=== PATIENT | female | born 1990 | race Caucasian/White ===

== ENCOUNTER 2017-02-25 14:08 | Emergency (ER) | payer MEDICAID ==
--- NOTE | 2017-02-25 15:24 | ER Document Report ---
ED Medical Screen (RME) - General Chief Complaint: Vaginal Bleeding Stated Complaint: VAGINAL BLEEDING Time Seen by Provider: 02/25/17 15:23 Notes: Patient states she has had 2 weeks of vaginal bleeding with epigastric pain and vomiting for 3 days. TRAVEL OUTSIDE OF THE [place] IN LAST 30 DAYS: No - Related Data Allergies/Adverse Reactions: drospirenone [From FLORA 28] Allergy (Severe, Verified 06/15/15 13:06) rash ethinyl estradiol [From FLORA 28] Allergy (Severe, Verified 06/15/15 13:06) rash nitrofurantoin [From Macrobid] Allergy (Severe, Verified 06/15/15 13:06) Generalized rash nitrofurantoin macrocrystalline [From Macrobid] Allergy (Severe, Verified 13:06) Generalized rash penicillin V potassium [From Pen-Vee K] Allergy (Severe, Verified 02/25/17 14:57 ) Anaphylaxis Penicillins Allergy (Severe, Verified 02/25/17 14:57) Anaphylaxis Sulfa (Sulfonamide Antibiotics) Allergy (Severe, Verified 06/15/15 13:06) Hives amoxicillin Allergy (Verified 02/25/17 14:57) Anaphylaxis erythromycin base Allergy (Verified 02/25/17 14:57) Anaphylaxis Past Medical History - General Last Menstrual Period: 2 years ago when nexpenon implanted - Social History Chew tobacco use (# tins/day): No Frequency of alcohol use: None Drug Abuse: None Neurological Medical History: Reports: Hx Migraine Endocrine Medical History: Denies: Hx Diabetes Mellitus Type 2 Renal/ Medical History: Denies: Hx Peritoneal Dialysis Psychiatric Medical History: Reports: Hx Anxiety, Hx Bipolar Disorder, Hx Depression - anxiety Denies: Hx Post Traumatic Stress Disorder, Hx Schizophrenia Past Surgical History: Reports: Hx Adenoidectomy, Hx Section, Hx Myringotomy, Hx Tonsillectomy - and adenoids when 4 yrs old - Immunizations Immunizations up to date: Yes Hx Diphtheria, Pertussis, Tetanus Vaccination: Yes Physical Exam - Vital signs Vitals: Temp Pulse Resp BP Pulse Ox 98.3 F 85 18 144/75 H 97 02/25/17 14:17 02/25/17 14:17 02/25/17 14:17 02/25/17 14:17 02/25/17 14:17 Course - Vital Signs Vital signs: Temp Pulse Resp BP Pulse Ox 98.3 F 85 18 144/75 H 97 02/25/17 14:17 02/25/17 14:17 02/25/17 14:17 02/25/17 14:17 02/25/17 14:17
--- NOTE | 2017-02-25 15:47 | ER Document Report ---
ED GI/ - General Chief Complaint: Vaginal Bleeding Stated Complaint: VAGINAL BLEEDING Time Seen by Provider: 02/25/17 15:23 Mode of Arrival: Ambulatory Information source: Patient TRAVEL OUTSIDE OF THE [place] IN LAST 30 DAYS: No - HPI Patient complains to provider of: Vaginal bleeding Onset: Other - 2 weeks Timing/Duration: Waxing and waning Quality of pain: Achy, Cramping Severity at maximum: Mild Severity in ED: Mild Location: Pelvis Vaginal bleeding (Compared to normal period): Heavier Menstrual period history: Abnormal Associated symptoms: None Exacerbated by: Denies Relieved by: Denies Similar symptoms previously: No Recently seen / treated by doctor: No Notes: 02/25/17 17:04 Patient is a 26-year-old female presenting to the emergency room complaining of vaginal bleeding 2 weeks duration, her last menstrual period was approximately 2 years ago prior to having a Nexplanon placed, she is reporting some pelvic cramping, denies any fever, no dysuria, no vaginal discharge other than the bleeding, the bleeding is heavy at times but has stopped at this point, she also is complaining of a frontal headache - Related Data Allergies/Adverse Reactions: drospirenone [From FLORA 28] Allergy (Severe, Verified 06/15/15 13:06) rash ethinyl estradiol [From FLORA 28] Allergy (Severe, Verified 06/15/15 13:06) rash nitrofurantoin [From Macrobid] Allergy (Severe, Verified 06/15/15 13:06) Generalized rash nitrofurantoin macrocrystalline [From Macrobid] Allergy (Severe, Verified 13:06) Generalized rash penicillin V potassium [From Pen-Vee K] Allergy (Severe, Verified 02/25/17 14:57 ) Anaphylaxis Penicillins Allergy (Severe, Verified 02/25/17 14:57) Anaphylaxis Sulfa (Sulfonamide Antibiotics) Allergy (Severe, Verified 06/15/15 13:06) Hives amoxicillin Allergy (Verified 02/25/17 14:57) Anaphylaxis erythromycin base Allergy (Verified 02/25/17 14:57) Anaphylaxis Past Medical History - General Information source: Patient Last Menstrual Period: 2 years ago when nexpenon implanted - Social History Smoking Status: Never Smoker Chew tobacco use (# tins/day): No Frequency of alcohol use: None Drug Abuse: None Family History: None Patient has suicidal ideation: No Patient has homicidal ideation: No Neurological Medical History: Reports: Hx Migraine Endocrine Medical History: Denies: Hx Diabetes Mellitus Type 2 Renal/ Medical History: Denies: Hx Peritoneal Dialysis Psychiatric Medical History: Reports: Hx Anxiety, Hx Bipolar Disorder, Hx Depression - anxiety Denies: Hx Post Traumatic Stress Disorder, Hx Schizophrenia Past Surgical History: Reports: Hx Adenoidectomy, Hx Section, Hx Myringotomy, Hx Tonsillectomy - and adenoids when 4 yrs old - Immunizations Immunizations up to date: Yes Hx Diphtheria, Pertussis, Tetanus Vaccination: Yes Hx Pneumococcal Vaccination: 04/08/14 Review of Systems - Review of Systems Constitutional: No symptoms reported EENT: No symptoms reported Cardiovascular: No symptoms reported Respiratory: No symptoms reported Gastrointestinal: No symptoms reported Genitourinary: No symptoms reported Female Genitourinary: Vaginal bleeding Musculoskeletal: No symptoms reported Skin: No symptoms reported Hematologic/Lymphatic: No symptoms reported Neurological/Psychological: No symptoms reported -: Yes All other systems reviewed and negative Physical Exam - Vital signs Vitals: Temp Pulse Resp BP Pulse Ox 98.3 F 85 18 144/75 H 97 02/25/17 14:17 02/25/17 14:17 02/25/17 14:17 02/25/17 14:17 02/25/17 14:17 Interpretation: Normal - General General appearance: Appears well, Alert - HEENT Head: Normocephalic, Atraumatic Eyes: Normal Pupils: PERRL - Respiratory Respiratory status: No respiratory distress Chest status: Nontender Breath sounds: Normal Chest palpation: Normal - Cardiovascular Rhythm: Regular Heart sounds: Normal auscultation Murmur: No - Abdominal Inspection: Normal Distension: No distension Bowel sounds: Normal Tenderness: Nontender Organomegaly: No organomegaly - Back Back: Normal, Nontender - Extremities General upper extremity: Normal inspection, Nontender, Normal color, Normal ROM , Normal temperature General lower extremity: Normal inspection, Nontender, Normal color, Normal ROM , Normal temperature, Normal weight bearing. No: Lashanda's sign - Neurological Neuro grossly intact: Yes Cognition: Normal Orientation: AAOx4 [place] Coma Scale Eye Opening: Spontaneous [place] Coma Scale Verbal: Oriented [place] Coma Scale Motor: Obeys Commands [place] Coma Scale Total: 15 Speech: Normal Motor strength normal: LUE, RUE, LLE, RLE Sensory: Normal - Psychological Associated symptoms: Normal affect, Normal mood - Skin Skin Temperature: Warm Skin Moisture: Dry Skin Color: Normal Course - Re-evaluation Re-evalutation: 02/25/17 17:05 Lab findings unremarkable and were discussed with patient at bedside, she was advised to follow-up with [facility], take Tylenol or Motrin as needed for pain, was given medication in the department for cramping and headache, patient advised to return if symptoms worsen, patient acknowledges understanding and agreement with this plan - Vital Signs Vital signs: Temp Pulse Resp BP Pulse Ox 98.3 F 85 18 144/75 H 97 02/25/17 14:17 02/25/17 14:17 02/25/17 14:17 02/25/17 14:17 02/25/17 14:17 - Laboratory Result Diagrams: 02/25/17 15:31 02/25/17 15:31 Laboratory results interpreted by me: 02/25/17 02/25/17 15:31 15:54 Sodium 145.9 H Urine Blood LARGE H Discharge - Discharge Clinical Impression: Vaginal bleeding Condition: Stable Disposition: HOME, SELF-CARE Instructions: Vaginal Bleeding ([facility]) Additional Instructions: Follow-up with your [facility] in 2-3 days. Return to the emergency room immediately if symptoms worsen or any additional concerns.
[2017-02-25 15:54] LABS: ABSOLUTE BASOPHILS # (AUTO) 0.1 10^3/uL (0.0-0.2); ABSOLUTE EOSINOPHILS # (AUTO) 0.2 10^3/uL (0.0-0.6); ABSOLUTE LYMPHOCYTES (AUTO) 3.5 10^3/uL (0.5-4.7); ABSOLUTE MONOCYTES (AUTO) 0.7 10^3/uL (0.1-1.4); ABSOLUTE NEUT (AUTO) 5.8 10^3/uL (1.7-8.2); BASOPHILS % (AUTO) 1.2 % (0-2); EOSINOPHILS % (AUTO) 1.8 % (0-6); HEMATOCRIT 43.3 % (36.0-47.0); HEMOGLOBIN 15.1 g/dL (12.0-15.5); LYMPHOCYTES % (AUTO) 34.1 % (13-45); MEAN CORPUSCULAR HEMOGLOBIN 31.8 pg (27.0-33.4); MEAN CORPUSCULAR HGB CONC 34.9 g/dL (32.0-36.0); MEAN CORPUSCULAR VOLUME 91 fl (80-97); MONOCYTES % (AUTO) 6.7 % (3-13); RED BLOOD COUNT 4.75 10^6/uL (3.72-5.28); RED CELL DISTRIBUTION WIDTH 13.1 % (11.5-14.0); SEGMENTED NEUTROPHILS % (AUTO) 56.2 % (42-78); WHITE BLOOD COUNT 10.3 10^3/uL (4.0-10.5)
[2017-02-25 16:11] LABS: BLOOD UREA NITROGEN 13 mg/dL (7-20); CALCIUM 9.4 mg/dL (8.4-10.2); CARBON DIOXIDE 27 mmol/L (22-30); CHLORIDE 104 mmol/L (98-107); CREATININE RESULT 0.82 mg/dL (0.52-1.25); GLUCOSE 92 mg/dL (75-110); POTASSIUM 4.1 mmol/L (3.6-5.0); SODIUM 145.9 mmol/L (137-145)
[2017-02-25 16:12] LABS: ALANINE AMINOTRANSFERASE 42 U/L (9-52); ALBUMIN 4.4 g/dL (3.5-5.0); ALKALINE PHOSPHATASE 65 U/L (38-126); ANION GAP 15 (5-19); ASPARTATE AMINO TRANSFERASE 15 U/L (14-36); BILIRUBIN,DIRECT 0.3 mg/dL (0.0-0.4); BILIRUBIN,TOTAL 0.3 mg/dL (0.2-1.3); LIPASE 177.7 U/L (23-300); TOTAL PROTEIN 7.7 g/dL (6.3-8.2)
[2017-02-25 16:24] LABS: APPEARANCE,URINE SLIGHTLY-CLOUDY; BILIRUBIN,URINE NEGATIVE (NEGATIVE); GLUCOSE, URINE NEGATIVE (NEGATIVE); KETONES,URINE NEGATIVE (NEGATIVE); LEUKOCYTE ESTERASE,URINE NEGATIVE (NEGATIVE); NITRITE,URINE NEGATIVE (NEGATIVE); PROTEIN,URINE NEGATIVE (NEGATIVE); URINE SPECIFIC GRAVITY 1.026; UROBILINOGEN,URINE NEGATIVE mg/dL (<2.0)
[2017-02-25] MEDS ORDERED: HYDROCODONE/ACETAMINOPHEN 5-325 MG TABLET PO ONE (17:03)
[2017-02-25] MEDS ORDERED: METOCLOPRAMIDE HCL ORAL SOLN 10 MG/10 ML UDCUP PO ONE (17:03)
[2017-02-25 17:52] VITALS: BP 123/78
== END 2017-02-25 17:52 | disposition home or self-care (01) ==
LOC: ER 14:08
DX: N93.9 Abnormal uterine and vaginal bleeding, unspecified (principal)
CPT/HCPCS: 99284; 36415; 83690; 85025; 81025; 80053; 81001; J3490

== ENCOUNTER 2017-06-06 12:26 | Emergency (ER) | payer MEDICAID ==
--- NOTE | 2017-06-06 14:07 | ER Document Report ---
ED General - General Chief Complaint: Headache Stated Complaint: HEADACHE, RASH Time Seen by Provider: 06/06/17 14:06 Mode of Arrival: Ambulatory Information source: Patient Notes: Patient is a 26 year old female who presents with rash that itches for the past 2-3 weeks from her shoulders to her feet. Denies any change in detergents, soaps , lotions, makeup. She has tried topical and oral benadryl with no relief. She reports her also has similar rash at home. She bought new clothing detergent today to try. She also endorses bitemporal headache for the past 2 days. State this feels like her typical headache. She has tried tylenol/motrin with no relief. Denies fever, chills, changes in vision, dizziness, nausea, vomiting, diarrhea, difficulty breathing, unilateral weakness, numbness or tingling. TRAVEL OUTSIDE OF THE [place] IN LAST 30 DAYS: No - Related Data Allergies/Adverse Reactions: drospirenone [From FLORA 28] Allergy (Severe, Verified 06/06/17 12:29) rash ethinyl estradiol [From FLORA 28] Allergy (Severe, Verified 06/06/17 12:29) rash nitrofurantoin [From Macrobid] Allergy (Severe, Verified 06/06/17 12:29) Generalized rash nitrofurantoin macrocrystalline [From Macrobid] Allergy (Severe, Verified 12:29) Generalized rash penicillin V potassium [From Pen-Vee K] Allergy (Severe, Verified 06/06/17 12:29 ) Anaphylaxis Penicillins Allergy (Severe, Verified 06/06/17 12:29) Anaphylaxis Sulfa (Sulfonamide Antibiotics) Allergy (Severe, Verified 06/06/17 12:29) Hives amoxicillin Allergy (Verified 06/06/17 12:29) Anaphylaxis erythromycin base Allergy (Verified 06/06/17 12:29) Anaphylaxis Past Medical History - General Information source: Patient - Social History Smoking Status: Never Smoker Chew tobacco use (# tins/day): No Frequency of alcohol use: None Drug Abuse: None Family History: None Patient has suicidal ideation: No Patient has homicidal ideation: No Neurological Medical History: Reports: Hx Migraine Endocrine Medical History: Denies: Hx Diabetes Mellitus Type 2 Renal/ Medical History: Denies: Hx Peritoneal Dialysis Psychiatric Medical History: Reports: Hx Anxiety, Hx Bipolar Disorder, Hx Depression - anxiety Denies: Hx Post Traumatic Stress Disorder, Hx Schizophrenia Past Surgical History: Reports: Hx Adenoidectomy, Hx Section, Hx Myringotomy, Hx Tonsillectomy - and adenoids when 4 yrs old - Immunizations Immunizations up to date: Yes Hx Diphtheria, Pertussis, Tetanus Vaccination: Yes Hx Pneumococcal Vaccination: 04/08/14 Review of Systems - Review of Systems Constitutional: See HPI EENT: No symptoms reported Cardiovascular: No symptoms reported Respiratory: No symptoms reported Gastrointestinal: No symptoms reported Genitourinary: No symptoms reported Female Genitourinary: No symptoms reported Musculoskeletal: No symptoms reported Skin: See HPI Hematologic/Lymphatic: No symptoms reported Neurological/Psychological: See HPI Physical Exam - Vital signs Vitals: Temp Pulse Resp BP Pulse Ox 98.6 F 90 16 128/75 H 97 06/06/17 12:30 06/06/17 12:30 06/06/17 12:30 06/06/17 12:30 06/06/17 12:30 - Notes Notes: PHYSICAL EXAM: CONSTITUTIONAL: Alert and oriented, well-appearing and in no acute distress. HENT: Normocephalic, atraumatic. No temporal artery tenderness, warmth or erythema. Oropharynx clear without erythema, tonsilar exudate or malocclusion. Trachea midline. Uvula midline. Moist mucous membranes. EYES: Pupils equal round and reactive to light, EOM intact. Sclera anicteric, conjunctiva are normal. No entrapment. NECK: supple without lymphadenopathy. No midline tenderness or paraspinous muscle spasms. No step-offs or deformities. ROM intact. HEART: Regular rate and rhythm without murmurs. LUNGS: CTAB and equal. No wheezes, rales or rhonchi. GI: Normactive bowel sounds. Nontender, non-distended. No organomegaly. no CVAT. EXTREMITIES: no bony tenderness, erythema, edema, ecchymosis or deformity. Normal range of motion, no pitting edema. No cyanosis. Cap Refill <3 seconds. NEURO: Cranial nerves grossly intact. Normal sensory/motor exams. No slurred speech, facial droop. PSYCH: Normal mood, normal affect. SKIN: Warm and dry. Normal turgor. Generalized scattered maculopapular rash to abdomen, back, upper extremities, lower extremities with overlying excoriations. Course - Re-evaluation Re-evalutation: 06/06/17 14:06 Patient seen and examined. Well-appearing, well-hydrated, sitting upright in exam bed, speaking in full sentences without difficulty. No neurological deficits on exam. This is not the worst headache she ever had her entire life. She denies any visual symptoms, neurological symptoms, vomiting or diarrhea. Do not feel imaging is warranted at this time. We will give IM Toradol and reassess. Low suspicion for temporal arteritis, SAH, CVA/TIA or other emergent condition at this time. Rash is consistent with contact dermatitis with overlying excoriations, no evidence of anaphylaxis. 06/06/17 14:58 Reassessed patient - she reports headache pain has resolved and she is ready to go home. Will prescribe steroids and hydroxyzine for itching, discussed hygiene at home. At this time, will discharge with return precautions and follow-up recommendations. Verbal discharge instructions given at the bedside and opportunity for questions given. Medication warnings reviewed. Patient is in agreement with this plan and has verbalized understanding of return precautions and the need for primary care follow-up in the next 24-72 hours. - Vital Signs Vital signs: Temp Pulse Resp BP Pulse Ox 98.6 F 90 16 128/75 H 97 06/06/17 12:30 06/06/17 12:30 06/06/17 12:30 06/06/17 12:30 06/06/17 12:30 Discharge - Discharge Clinical Impression: Contact dermatitis Qualifiers: Contact dermatitis type: irritant Contact dermatitis trigger: other trigger Qualified Code(s): L24.89 - Irritant contact dermatitis due to other agents; L24.8 - Irritant contact dermatitis due to other agents Headache Qualifiers: Headache type: tension-type Headache chronicity pattern: acute headache Intractability: not intractable Qualified Code(s): G44.209 - Tension-type headache, unspecified, not intractable Condition: Stable Disposition: HOME, SELF-CARE Instructions: Contact Dermatitis ([facility]) Additional Instructions: HEADACHE: The physician does not feel that the headache you are experiencing has a serious underlying cause. Most headaches are due to emotional stress, with resultant muscle tension (tension headache). Occasionally, headaches are secondary to changes in the blood vessels of the scalp (vascular headache and migraine headache). Sometimes, a headache is the first symptom of another developing illness, such as a viral infection. You have no evidence of stroke, bleeding, meningitis, or other serious cause of your headache. The treatment of headaches varies with the severity and cause of the pain. Not all headaches need pain shots. In fact, there is evidence that using narcotics for headaches may make them worse in the long run. The physician will determine the therapy that's in your best interest. If you develop a fever, if the headache is different from any you've previously experienced, or if the headache progressively worsens, then call your physician at once or go to the emergency room. TORADOL INJECTION: You have been given an injection of ketorolac tromethamine (Toradol). This is an excellent, safe drug for pain control. It also has potent antiinflammatory action. You should have significant pain relief within about one hour. Toradol is not addicting and is non-sedating. It does not interfere with driving or work. Call or return if you develop itching, hives, shortness of breath, or rash. FOLLOW-UP CARE: If you have been referred to a physician for follow-up care, call the physician s office for an appointment as you were instructed or within the next two days. If you experience worsening or a significant change in your symptoms, notify the physician immediately or return to the Emergency Department at any time for re-evaluation. Prescriptions: Hydralazine HCl 25 mg PO BID #12 tablet Prednisone [Deltasone 20 mg Tablet] 3 tab PO DAILY 5 Days tablet Forms: Elevated Blood Pressure
[2017-06-06] MEDS ORDERED: KETOROLAC TROMETHAMINE 60 MG/2 ML SDV IM ONE (14:12)
[2017-06-06 15:21] VITALS: BP 131/81
== END 2017-06-06 15:21 | disposition home or self-care (01) ==
LOC: ER 12:26
DX: L24.9 Irritant contact dermatitis, unspecified cause (principal); G44.209 Tension-type headache, unspecified, not intractable; E11.9 Type 2 diabetes mellitus without complications; Z88.8 Allergy status to other drugs, medicaments and biological substances; Z88.1 Allergy status to other antibiotic agents; Z88.0 Allergy status to penicillin; Z88.2 Allergy status to sulfonamides
CPT/HCPCS: 99283; 96372; J1885

== ENCOUNTER 2018-02-10 12:00 | Emergency (ER) | payer MEDICAID ==
[2018-02-10] MEDS ORDERED: PROMETHAZINE HCL INJ 25 MG/1 ML VIAL IV ONE (12:55)
--- NOTE | 2018-02-10 12:57 | ER Document Report ---
ED Medical Screen (RME) - General Chief Complaint: Vomiting Stated Complaint: VOMITING, HEADACHE Time Seen by Provider: 02/10/18 12:51 Mode of Arrival: Ambulatory Information source: Patient Notes: 27-year-old female presents emergency department complaints of epigastric and suprapubic abdominal pain for the last 2 days. She describes the pain as a sharp and stabbing sensation. She denies any radiation of the pain. She denies any alleviating or exacerbating factors. She is having some associated nausea and vomiting. She denies any vaginal bleeding, vaginal discharge, dysuria, hematuria, increased urgency, increased frequency. Patient states that she has a nexplanon in her arm that was supposed to be removed last month. I have greeted and performed a rapid initial assessment of this patient. A comprehensive ED assessment and evaluation of the patient, analysis of test results and completion of the medical decision making process will be conducted by additional ED providers. PHYSICAL EXAMINATION: GENERAL: Well-appearing, well-nourished and in no acute distress. HEAD: Atraumatic, normocephalic. EYES: Pupils equal round extraocular movements intact, conjunctiva are normal. ENT: Nares patent NECK: Normal range of motion LUNGS: No respiratory distress Musculoskeletal: Normal range of motion NEUROLOGICAL: Normal speech, normal gait. PSYCH: Normal mood, normal affect. SKIN: Warm, Dry, normal turgor, no rashes or lesions noted. TRAVEL OUTSIDE OF THE [place] IN LAST 30 DAYS: No - Related Data Allergies/Adverse Reactions: drospirenone [From FLORA 28] Allergy (Severe, Verified 02/10/18 12:01) rash ethinyl estradiol [From FLORA 28] Allergy (Severe, Verified 02/10/18 12:01) rash nitrofurantoin [From Macrobid] Allergy (Severe, Verified 02/10/18 12:01) Generalized rash nitrofurantoin macrocrystalline [From Macrobid] Allergy (Severe, Verified 12:01) Generalized rash penicillin V potassium [From Pen-Vee K] Allergy (Severe, Verified 02/10/18 12:01 ) Anaphylaxis Penicillins Allergy (Severe, Verified 02/10/18 12:01) Anaphylaxis Sulfa (Sulfonamide Antibiotics) Allergy (Severe, Verified 02/10/18 12:01) Hives amoxicillin Allergy (Verified 02/10/18 12:01) Anaphylaxis erythromycin base Allergy (Verified 02/10/18 12:01) Anaphylaxis Past Medical History Neurological Medical History: Reports: Hx Migraine Endocrine Medical History: Denies: Hx Diabetes Mellitus Type 2 Renal/ Medical History: Denies: Hx Peritoneal Dialysis Psychiatric Medical History: Reports: Hx Anxiety, Hx Bipolar Disorder, Hx Depression - anxiety Denies: Hx Post Traumatic Stress Disorder, Hx Schizophrenia Past Surgical History: Reports: Hx Adenoidectomy, Hx Section, Hx Myringotomy, Hx Tonsillectomy - and adenoids when 4 yrs old - Immunizations Immunizations up to date: Yes Hx Diphtheria, Pertussis, Tetanus Vaccination: Yes Physical Exam - Vital signs Vitals: Temp Pulse Resp BP Pulse Ox 98.2 F 75 16 125/72 97 02/10/18 12:03 02/10/18 12:03 02/10/18 12:03 02/10/18 12:03 02/10/18 12:03 Course - Vital Signs Vital signs: Temp Pulse Resp BP Pulse Ox 98.2 F 75 16 125/72 97 02/10/18 12:03 02/10/18 12:03 02/10/18 12:03 02/10/18 12:03 02/10/18 12:03
[2018-02-10 13:56] LABS: APPEARANCE,URINE SLIGHTLY-CLOUDY; BILIRUBIN,URINE NEGATIVE (NEGATIVE); COLOR,URINE YELLOW; GLUCOSE, URINE NEGATIVE (NEGATIVE); KETONES,URINE NEGATIVE (NEGATIVE); LEUKOCYTE ESTERASE,URINE LARGE (NEGATIVE); NITRITE,URINE POSITIVE (NEGATIVE); PROTEIN,URINE NEGATIVE (NEGATIVE); URINE SPECIFIC GRAVITY 1.028; UROBILINOGEN,URINE NEGATIVE mg/dL (<2.0)
[2018-02-10 14:04] LABS: ABSOLUTE BASOPHILS # (AUTO) 0.1 10^3/uL (0.0-0.2); ABSOLUTE EOSINOPHILS # (AUTO) 0.2 10^3/uL (0.0-0.6); ABSOLUTE LYMPHOCYTES (AUTO) 2.4 10^3/uL (0.5-4.7); ABSOLUTE MONOCYTES (AUTO) 0.5 10^3/uL (0.1-1.4); ABSOLUTE NEUT (AUTO) 4.5 10^3/uL (1.7-8.2); BASOPHILS % (AUTO) 0.9 % (0-2); EOSINOPHILS % (AUTO) 2.8 % (0-6); HEMATOCRIT 40.1 % (36.0-47.0); HEMOGLOBIN 14.4 g/dL (12.0-15.5); LYMPHOCYTES % (AUTO) 30.7 % (13-45); MEAN CORPUSCULAR HEMOGLOBIN 33.7 pg (27.0-33.4); MEAN CORPUSCULAR HGB CONC 35.8 g/dL (32.0-36.0); MEAN CORPUSCULAR VOLUME 94 fl (80-97); MONOCYTES % (AUTO) 7.2 % (3-13); PLATELET COUNT 163 10^3/uL (150-450); RED BLOOD COUNT 4.26 10^6/uL (3.72-5.28); RED CELL DISTRIBUTION WIDTH 13.6 % (11.5-14.0); SEGMENTED NEUTROPHILS % (AUTO) 58.4 % (42-78); TOTAL CELLS COUNTED % (AUTO) 100 %; WHITE BLOOD COUNT 7.7 10^3/uL (4.0-10.5)
[2018-02-10 14:30] LABS: ALANINE AMINOTRANSFERASE 24 U/L (9-52); ALBUMIN 4.2 g/dL (3.5-5.0); ALKALINE PHOSPHATASE 63 U/L (38-126); ANION GAP 12 (5-19); ASPARTATE AMINO TRANSFERASE 21 U/L (14-36); BILIRUBIN,DIRECT 0.1 mg/dL (0.0-0.4); BILIRUBIN,TOTAL 0.3 mg/dL (0.2-1.3); BLOOD UREA NITROGEN 18 mg/dL (7-20); CALCIUM 9.5 mg/dL (8.4-10.2); CARBON DIOXIDE 27 mmol/L (22-30); CHLORIDE 105 mmol/L (98-107); GLUCOSE 89 mg/dL (75-110); LIPASE 66.6 U/L (23-300); POTASSIUM 4.6 mmol/L (3.6-5.0); SODIUM 144.2 mmol/L (137-145); TOTAL PROTEIN 7.9 g/dL (6.3-8.2)
[2018-02-10] MEDS ORDERED: KETOROLAC TROMETHAMINE INJ/PF 30 MG/1 ML SDV IV ONE (14:34)
[2018-02-10] MEDS ORDERED: CEFTRIAXONE INJ 1000 MG VIAL IV ONE (14:48)
--- NOTE | 2018-02-10 14:51 | ER Document Report ---
ED GI/ - General Chief Complaint: Vomiting Stated Complaint: VOMITING, HEADACHE Time Seen by Provider: 02/10/18 12:51 Mode of Arrival: Ambulatory Information source: Patient Notes: 27-year-old female presents to ED for complaint of headache nausea vomiting epigastric pain and suprapubic pain for the last 2 days. She describes the pain as sharp and stabbing. She states the headaches are her normal headaches. She states she usually does not vomit with the headaches but she is today. Patient is alert and oriented, pupils equal and react to light, respirations regular and unlabored, speaking in full sentences, and walk with a even steady gait. TRAVEL OUTSIDE OF THE [place] IN LAST 30 DAYS: No - HPI Patient complains to provider of: Vomiting - Nausea and vomiting, Other - Epigastric pain and suprapubic Onset: Other - 2 days Timing/Duration: Intermittent Quality of pain: Achy, Cramping Severity at maximum: Moderate Severity in ED: Moderate Pain Level: 3 Location: Epigastric, Suprapubic Vaginal bleeding (Compared to normal period): None Associated symptoms: Nausea, Vomiting Exacerbated by: Denies Relieved by: Denies Similar symptoms previously: Yes Recently seen / treated by doctor: No - Related Data Allergies/Adverse Reactions: drospirenone [From FLORA 28] Allergy (Severe, Verified 02/10/18 12:01) rash ethinyl estradiol [From FLORA 28] Allergy (Severe, Verified 02/10/18 12:01) rash nitrofurantoin [From Macrobid] Allergy (Severe, Verified 02/10/18 12:01) Generalized rash nitrofurantoin macrocrystalline [From Macrobid] Allergy (Severe, Verified 12:01) Generalized rash penicillin V potassium [From Pen-Vee K] Allergy (Severe, Verified 02/10/18 12:01 ) Anaphylaxis Penicillins Allergy (Severe, Verified 02/10/18 12:01) Anaphylaxis Sulfa (Sulfonamide Antibiotics) Allergy (Severe, Verified 02/10/18 12:01) Hives amoxicillin Allergy (Verified 02/10/18 12:01) Anaphylaxis erythromycin base Allergy (Verified 02/10/18 12:01) Anaphylaxis Past Medical History - General Information source: Patient - Social History Smoking Status: Never Smoker Cigarette use (# per day): No Chew tobacco use (# tins/day): No Smoking Education Provided: No Frequency of alcohol use: None Drug Abuse: None Lives with: Family Family History: None Patient has suicidal ideation: No Patient has homicidal ideation: No - Past Medical History Cardiac Medical History: Reports: None Pulmonary Medical History: Reports: None EENT Medical History: Reports: None Neurological Medical History: Reports: Hx Migraine Endocrine Medical History: Reports: None Renal/ Medical History: Reports: None Malignancy Medical History: Reports: None GI Medical History: Reports: None Musculoskeletal Medical History: Reports None Skin Medical History: Reports None Psychiatric Medical History: Reports: Hx Anxiety, Hx Bipolar Disorder, Hx Depression - anxiety, Hx Post Traumatic Stress Disorder Traumatic Medical History: Reports: None Infectious Medical History: Reports: None Past Surgical History: Reports: Hx Adenoidectomy, Hx Section, Hx Myringotomy, Hx Tonsillectomy - Immunizations Immunizations up to date: Yes Hx Diphtheria, Pertussis, Tetanus Vaccination: Yes Hx Pneumococcal Vaccination: 04/08/14 Review of Systems - Review of Systems Constitutional: No symptoms reported EENT: No symptoms reported Cardiovascular: No symptoms reported Respiratory: No symptoms reported Gastrointestinal: Abdominal pain, Nausea, Vomiting Genitourinary: No symptoms reported Female Genitourinary: No symptoms reported Musculoskeletal: No symptoms reported Skin: No symptoms reported Hematologic/Lymphatic: No symptoms reported Neurological/Psychological: No symptoms reported -: Yes All other systems reviewed and negative Physical Exam - Vital signs Vitals: Temp Pulse Resp BP Pulse Ox 98.2 F 75 16 125/72 97 02/10/18 12:03 02/10/18 12:03 02/10/18 12:03 02/10/18 12:03 02/10/18 12:03 Interpretation: Normal - General General appearance: Appears well, Alert - HEENT Head: Normocephalic, Atraumatic Eyes: Normal Pupils: PERRL Ears: Normal External canal: Normal Tympanic membrane: Normal Sinus: Normal Nasal: Normal Mouth/Lips: Normal Pharynx: Normal Neck: Normal - Respiratory Respiratory status: No respiratory distress Chest status: Nontender Breath sounds: Normal Chest palpation: Normal - Cardiovascular Rhythm: Regular Heart sounds: Normal auscultation Murmur: No - Abdominal Inspection: Normal Distension: No distension Bowel sounds: Normal Tenderness: Nontender Organomegaly: No organomegaly - Back Back: Normal, Nontender - Extremities General upper extremity: Normal inspection, Nontender, Normal color, Normal ROM , Normal temperature General lower extremity: Normal inspection, Nontender, Normal color, Normal ROM , Normal temperature, Normal weight bearing. 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 Patient states she was feeling much better patient was discharged home with prescription for ibuprofen and Compazine. Patient was discharged home with instructions to follow-up with her primary doctor. After performing a Medical Screening Examination, I estimate there is LOW risk for ACUTE GLAUCOMA, TEMPORAL ARTERITIS , MENINGITIS, INCRANIAL HEMORRHAGE, or ISCHEMIC STROKE thus I consider the discharge disposition reasonable. I have reevaluated this patient multiple times and no significant life threatening changes are noted. The patient and I have discussed the diagnosis and risks, and we agree with discharging home with close follow-up with the understanding that symptoms and presentations can change. We also discussed returning to the Emergency Department immediately if new or worsening symptoms occur. We have discussed the symptoms which are most concerning (e.g., changing or worsening symptoms, new numbness or weakness, vomiting, fever) that necessitate immediate return. - Vital Signs Vital signs: Temp Pulse Resp BP Pulse Ox 98.6 F 67 18 121/90 H 99 02/10/18 15:26 02/10/18 15:26 02/10/18 15:26 02/10/18 15:26 02/10/18 15:26 - Laboratory Result Diagrams: 02/10/18 13:32 02/10/18 13:32 Laboratory results interpreted by me: 02/10/18 02/10/18 13:32 13:32 MCH 33.7 H Urine Nitrite POSITIVE H Ur Leukocyte Esterase LARGE H Discharge - Discharge Clinical Impression: Headache Qualifiers: Headache type: unspecified Headache chronicity pattern: unspecified pattern Intractability: not intractable Qualified Code(s): R51 - Headache UTI (urinary tract infection) Qualifiers: Urinary tract infection type: site unspecified Hematuria presence: without hematuria Qualified Code(s): N39.0 - Urinary tract infection, site not specified Nausea & vomiting Qualifiers: Vomiting type: unspecified Vomiting Intractability: non-intractable Qualified Code(s): R11.2 - Nausea with vomiting, unspecified Condition: Stable Disposition: HOME, SELF-CARE Instructions: Family Physicians / Practices Additional Instructions: HEADACHE: The physician does not feel that the headache you are experiencing has a serious underlying cause. Most headaches are due to emotional stress, with resultant muscle tension (tension headache). Occasionally, headaches are secondary to changes in the blood vessels of the scalp (vascular headache and migraine headache). Sometimes, a headache is the first symptom of another developing illness, such as a viral infection. You have no evidence of stroke, bleeding, meningitis, or other serious cause of your headache. The treatment of headaches varies with the severity and cause of the pain. Not all headaches need pain shots. In fact, there is evidence that using narcotics for headaches may make them worse in the long run. The physician will determine the therapy that's in your best interest. If you develop a fever, if the headache is different from any you've previously experienced, or if the headache progressively worsens, then call your physician at once or go to the emergency room. VOMITING: Vomiting (or nausea without vomiting) can be caused by many other different problems. It can mean that something's wrong with the stomach, such as ulcers or inflammation or the intestinal tract, such as appendicitis. But it can also be a symptom of a problem that has nothing to do with the stomach or intestines. Vomiting is common with severe headaches, earaches, tonsillitis, and kidney infections, etc. We see it with pneumonia or heart attacks. Drugs can cause nausea and vomiting. Many abdominal problems cause vomiting; for example, gallstones, kidney stones, pancreatitis, and intestinal obstruction ( blocked bowels). In most cases, curing the vomiting depends on fixing the problem that caused it. For temporary relief, we may use an anti-nausea medicine. For home use, we can prescribe suppositories, chewable pills, pills that dissolve in the mouth, or liquid anti-nausea drugs. If the vomiting seems to be caused by a problem in the stomach, acid-suppressing drugs may be prescribed as well. It's important to avoid dehydration. Sip small amounts of clear liquids ( soft drinks, tea, broth, etc) . Try to take fluids frequently even if you are vomiting to prevent dehydration. Take increasing amounts of fluid and when liquids are being consumed successfully, advance to small amounts of bland food (toast, soups, mashed potatoes, etc.) until you are able to resume a regular diet. Avoid aspirin, tobacco, and alcohol. If the vomiting worsens, if the problem that's making you vomit worsens, or if there's evidence of bleeding in the stomach (such as black, tarry stool, or bloody or black vomit), you should return immediately. Also, return if abdominal pain worsens or becomes localized to one area or you develop high fever. Call your doctor if you aren't improved in 24 hours. USE OF DIPHENHYDRAMINE: Diphenhydramine (Benadryl) is an antihistamine and has been recommended to help treat your headache and to prevent side effects of other medications used to treat headaches. The medication can be repeated four times daily. Age Elixir (12.5 mg/tsp) 25 mg pill adult 1-2 tabs Antihistamines may cause drowsiness, especially with the first dose. Do not operate machinery or drive while under the effects of the medication. Do not combine the medication with alcohol, or with any other medication without talking to your doctor. COMPAZINE FOR HEADACHE: You have received therapy for headaches, using intravenous Compazine. This treatment is dramatically successful in relieving the headache in about 50 percent of cases. When it works, it provides a rapid method of eliminating the headache without resorting to narcotics (and the problems associated with them). Most patients still feel fully alert after the Compazine, but others may be slightly drowsy. It's best not to drive or work with machinery for six to eight hours. Do not take alcohol or other medication unless you discuss it with the doctor. If you develop tightness and spasms in your muscles, especially the neck and tongue, you should return. This is a side effect which can be treated. TORADOL INJECTION: You have been given an injection of ketorolac tromethamine (Toradol). This is an excellent, safe drug for pain control. It also has potent antiinflammatory action. You should have significant pain relief within about one hour. Toradol is not addicting and is non-sedating. It does not interfere with driving or work. Call or return if you develop itching, hives, shortness of breath, or rash. FOLLOW-UP CARE: If you have been referred to a physician for follow-up care, call the physician s office for an appointment as you were instructed or within the next two days. If you experience worsening or a significant change in your symptoms, notify the physician immediately or return to the Emergency Department at any time for re-evaluation. Prescriptions: Ibuprofen 800 mg PO Q6HP PRN #20 tablet PRN Reason: Prochlorperazine Maleate [Compazine 10 mg Tablet] 10 mg PO Q6HP PRN #10 tablet PRN Reason: Cephalexin Monohydrate [Keflex 500 mg Capsule] 500 mg PO QID #20 capsule Forms: Elevated Blood Pressure
[2018-02-10 15:28] VITALS: BP 121/90
== END 2018-02-10 15:28 | disposition home or self-care (01) ==
LOC: ER 12:00
DX: N39.0 Urinary tract infection, site not specified (principal); R51 Headache; R11.2 Nausea with vomiting, unspecified; R10.13 Epigastric pain
CPT/HCPCS: 99284; 96375; 96365; 36415; 83690; 85025; 81025; 80053; 81001; J1885; J2550; J0696

== ENCOUNTER → 2018-03-05 | Outpatient (CLI) | payer MEDICAID ==
--- NOTE | 2018-03-05 11:43 | RADIOLOGY REPORT (SQ) ---
EXAM DESCRIPTION: VENOUS BILATERAL LOWER COMPLETED DATE/TIME: 03/05/2018 9:43 am REASON FOR STUDY: BLE SWELLING R22.43 LOCALIZED SWELLING, MASS AND LUMP, LOWER LIMB, BILATE COMPARISON: None. TECHNIQUE: Dynamic and static ahmadi scale and color images acquired of both lower extremity venous sy stems. Selected spectral images acquired with additional compression and augmentation maneuvers. Imag es stored on PACS. LIMITATIONS: None. FINDINGS: RIGHT LEG COMMON FEMORAL AND FEMORAL: Normal phasicity, compression and augmentation. No visualized echogenic m aterial on ahmadi scale. No defects on color images. POPLITEAL: Normal compression and augmentation. No visualized echogenic material on ahmadi scale. No de fects on color images. CALF VESSELS: Normal compression and augmentation. No visualized echogenic material on ahmadi scale. No defects on color image. GSV AND SSV: Normal compression. No visualized echogenic material on ahmadi scale. No defects on color images. ANY DEEP VENOUS INSUFFICIENCY: Not evaluated. ANY EVIDENCE OF POPLITEAL CYST: No. OTHER: No other significant finding. LEFT LEG COMMON FEMORAL AND FEMORAL: Normal phasicity, compression and augmentation. No visualized echogenic m aterial on ahmadi scale. No defects on color images. POPLITEAL: Normal compression and augmentation. No visualized echogenic material on ahmadi scale. No de fects on color images. CALF VESSELS: Normal compression and augmentation. No visualized echogenic material on ahmadi scale. No defects on color images. GSV AND SSV: Normal compression. No visualized echogenic material on ahmadi scale. No defects on color images. ANY DEEP VENOUS INSUFFICIENCY: Not evaluated. ANY EVIDENCE POPLITEAL CYST: No. OTHER: No other significant finding. IMPRESSION: NO EVIDENCE DVT OR SVT IN EITHER LEG. TECHNICAL DOCUMENTATION: JOB ID: [id number] [employer]- All Rights Reserved Reading location - IP/workstation name: [email or web address]
== END ==
LOC: SP 08:51
PROVIDERS: ATTEND Internal Medicine
DX: R22.43 Localized swelling, mass and lump, lower limb, bilateral (principal)
CPT/HCPCS: 93970

== ENCOUNTER 2018-11-14 11:21 | Emergency (ER) | payer MEDICAID ==
--- NOTE | 2018-11-14 12:11 | ER Document Report ---
ED Medical Screen (RME) - General Chief Complaint: Vaginal Bleeding Stated Complaint: ABNORMAL VAGINAL BLEEDING Time Seen by Provider: 11/14/18 12:05 Mode of Arrival: Ambulatory Information source: Patient Notes: 28-year-old female presented to ED for complaint of pelvic pain and vaginal bleeding for 4 months. She states she began this. In the beginning of October and is not stopped. She states she is never had anything like this before. She states it hurts so bad she does not want her to touch her. She states she has been 5 times and has 5 children 2 of which were C-sections. She does have a history of bipolar anxiety depression and a head injury at 1 years of age. She states she did have a Nexplanon and had that removed in February or January. Patient is alert oriented respirations regular and unlabored speaking in full sentences walks with a even steady gait nontoxic in appearance. I have greeted and performed a rapid initial assessment of this patient. A comprehensive ED assessment and evaluation of the patient, analysis of test results and completion of medical decision making process will be conducted by an additional ED providers. Dictation of this chart was performed using voice recognition software; therefore, there may be some unintended grammatical errors. TRAVEL OUTSIDE OF THE [place] IN LAST 30 DAYS: No - Related Data Allergies/Adverse Reactions: drospirenone [From FLORA 28] Allergy (Severe, Verified 11/14/18 11:24) rash ethinyl estradiol [From FLORA 28] Allergy (Severe, Verified 11/14/18 11:24) rash nitrofurantoin [From Macrobid] Allergy (Severe, Verified 11/14/18 11:24) Generalized rash nitrofurantoin macrocrystalline [From Macrobid] Allergy (Severe, Verified 11:24) Generalized rash penicillin V potassium [From Pen-Vee K] Allergy (Severe, Verified 11/14/18 11:24) Anaphylaxis Penicillins Allergy (Severe, Verified 11/14/18 11:24) Anaphylaxis Sulfa (Sulfonamide Antibiotics) Allergy (Severe, Verified 11/14/18 11:24) Hives amoxicillin Allergy (Verified 11/14/18 11:24) Anaphylaxis erythromycin base Allergy (Verified 11/14/18 11:24) Anaphylaxis Past Medical History Neurological Medical History: Reports: Hx Migraine Endocrine Medical History: Denies: Hx Diabetes Mellitus Type 2 Renal/ Medical History: Denies: Hx Peritoneal Dialysis Psychiatric Medical History: Reports: Hx Anxiety, Hx Bipolar Disorder, Hx Depression - anxiety, Hx Post Traumatic Stress Disorder Denies: Hx Schizophrenia Past Surgical History: Reports: Hx Adenoidectomy, Hx Section, Hx Myringotomy, Hx Tonsillectomy - Immunizations Immunizations up to date: Yes Hx Diphtheria, Pertussis, Tetanus Vaccination: Yes Physical Exam - Vital signs Vitals: Temp Pulse Resp BP Pulse Ox 97.4 F 86 18 137/88 H 97 11/14/18 11:26 11/14/18 11:26 11/14/18 11:26 11/14/18 11:26 11/14/18 11:26 Course - Vital Signs Vital signs: Temp Pulse Resp BP Pulse Ox 97.4 F 86 18 137/88 H 97 11/14/18 11:26 11/14/18 11:26 11/14/18 11:26 11/14/18 11:26 11/14/18 11:26
[2018-11-14 13:05] LABS: ABSOLUTE BASOPHILS # (AUTO) 0.1 10^3/uL (0.0-0.2); ABSOLUTE EOSINOPHILS # (AUTO) 0.1 10^3/uL (0.0-0.6); ABSOLUTE LYMPHOCYTES (AUTO) 2.6 10^3/uL (0.5-4.7); ABSOLUTE MONOCYTES (AUTO) 0.4 10^3/uL (0.1-1.4); ABSOLUTE NEUT (AUTO) 3.6 10^3/uL (1.7-8.2); BASOPHILS % (AUTO) 1.2 % (0-2); EOSINOPHILS % (AUTO) 2.1 % (0-6); HEMATOCRIT 42.5 % (36.0-47.0); HEMOGLOBIN 14.6 g/dL (12.0-15.5); LYMPHOCYTES % (AUTO) 38.1 % (13-45); MEAN CORPUSCULAR HEMOGLOBIN 31.4 pg (27.0-33.4); MEAN CORPUSCULAR HGB CONC 34.4 g/dL (32.0-36.0); MEAN CORPUSCULAR VOLUME 91 fl (80-97); MONOCYTES % (AUTO) 6.1 % (3-13); PLATELET COUNT 223 10^3/uL (150-450); RED BLOOD COUNT 4.66 10^6/uL (3.72-5.28); RED CELL DISTRIBUTION WIDTH 12.9 % (11.5-14.0); SEGMENTED NEUTROPHILS % (AUTO) 52.5 % (42-78); TOTAL CELLS COUNTED % (AUTO) 100 %; WHITE BLOOD COUNT 6.9 10^3/uL (4.0-10.5)
[2018-11-14 13:08] LABS: APPEARANCE,URINE CLOUDY; BILIRUBIN,URINE NEGATIVE (NEGATIVE); COLOR,URINE YELLOW; GLUCOSE, URINE NEGATIVE (NEGATIVE); KETONES,URINE NEGATIVE (NEGATIVE); LEUKOCYTE ESTERASE,URINE LARGE (NEGATIVE); NITRITE,URINE POSITIVE (NEGATIVE); PROTEIN,URINE NEGATIVE (NEGATIVE); URINE SPECIFIC GRAVITY 1.017; UROBILINOGEN,URINE NEGATIVE mg/dL (<2.0)
[2018-11-14 13:23] LABS: ALBUMIN 4.4 g/dL (3.5-5.0); ALKALINE PHOSPHATASE 72 U/L (38-126); ANION GAP 9 (5-19); ASPARTATE AMINO TRANSFERASE 26 U/L (14-36); BILIRUBIN,DIRECT 0.2 mg/dL (0.0-0.4); BILIRUBIN,TOTAL 0.3 mg/dL (0.2-1.3); BLOOD UREA NITROGEN 11 mg/dL (7-20); CALCIUM 9.5 mg/dL (8.4-10.2); CARBON DIOXIDE 25 mmol/L (22-30); CHLORIDE 104 mmol/L (98-107); GLUCOSE 80 mg/dL (75-110); POTASSIUM 4.7 mmol/L (3.6-5.0); TOTAL PROTEIN 7.8 g/dL (6.3-8.2)
--- NOTE | 2018-11-14 13:41 | RADIOLOGY REPORT (SQ) ---
EXAM DESCRIPTION: U/S NON OB PEL TV W/DOPPLER COMPLETED DATE/TIME: 11/14/2018 1:15 pm REASON FOR STUDY: Vaginal bleeding for 4 weeks pelvic pain COMPARISON: None. TECHNIQUE: Dynamic and static grayscale images acquired of the pelvis via transvaginal approach and recorded on PACS. Additional selected color Doppler and spectral images recorded. LIMITATIONS: None. FINDINGS: UTERUS: Contour normal. No mass. ENDOMETRIAL STRIPE: No focal or generalized thickening. No masses. CERVIX: No nabothian cysts. RIGHT OVARY AND DOPPLER: Nonvisualized. LEFT OVARY AND DOPPLER: Enlarged by a cyst measuring 3.3 cm. No worrisome masses. Arterial and veno us Doppler flow is present. FREE FLUID: None noted. OTHER: No other significant finding. MEASUREMENTS: UTERUS: 8.4 x 5.2 x 6.6 cm ENDOMETRIAL STRIPE: 7 mm RIGHT OVARY: Nonvisualized. LEFT OVARY: 6.6 x 3.6 x 5.3 cm, enlarged by a simple appearing cyst measuring 3.3 cm. IMPRESSION: 1. No ultrasound abnormality of the uterus or endometrium to explain vaginal bleeding. 2. The left ovary is enlarged by a simple appearing cyst measuring 3.3 cm, almost certainly benign a nd functional in the reproductive age setting. Arterial and venous Doppler flow is present. Please note that intermittent or incomplete torsion cannot be strictly excluded in any enlarged ovary if acu tely referable pain is present. Consider torsion precautions if clinically appropriate. TECHNICAL DOCUMENTATION: JOB ID: [id number] [employer]- All Rights Reserved Rev Reading location - IP/workstation name: [email or web address]
[2018-11-14] MEDS ORDERED: IBUPROFEN 800 MG TABLET PO ONE (14:36)
[2018-11-14] MEDS ORDERED: CEPHALEXIN 500 MG CAPSULE PO ONE (14:36)
[2018-11-14] MEDS ORDERED: ONDANSETRON 4 MG TAB.RAPDIS PO ONE (14:38)
--- NOTE | 2018-11-14 14:40 | ER Document Report ---
HPI - HPI Patient complains to provider of: vaginal bleeding Time Seen by Provider: 11/14/18 12:05 Onset: Other - 4 wks Onset/Duration: Persistent Quality of pain: Cramping Pain Level: 2 Context: Patient presents complaining of vaginal bleeding for the past 4 weeks with lower pelvic pain. Patient reports vomiting x2 episodes today. Patient denies any fever or urinary symptoms. Associated Symptoms: Nausea, Vomiting, Other - Vaginal bleeding. denies: Fever Exacerbated by: Denies Relieved by: Denies Similar symptoms previously: Yes Recently seen / treated by doctor: No - ROS ROS below otherwise negative: Yes Systems Reviewed and Negative: Yes All other systems reviewed and negative - CONSTITUTIONAL Constitutional: DENIES: Fever, Chills - NEURO Neurology: DENIES: Headache - GASTROINTESTINAL Gastrointestinal: REPORTS: Abdominal Pain, Nausea, Patient vomiting - URINARY Urinary: DENIES: Dysuria - REPRODUCTIVE Reproductive: REPORTS: Abnormal bleeding / discharge. DENIES: : - MUSCULOSKELETAL Musculoskeletal: DENIES: Back Pain - DERM Skin Color: Normal Skin Problems: None Past Medical History - General Information source: Patient - Social History Smoking Status: Never Smoker Chew tobacco use (# tins/day): No Frequency of alcohol use: None Drug Abuse: None Occupation: none Lives with: Family Family History: None Patient has suicidal ideation: No Patient has homicidal ideation: No Neurological Medical History: Reports: Hx Migraine Endocrine Medical History: Denies: Hx Diabetes Mellitus Type 2 Renal/ Medical History: Denies: Hx Peritoneal Dialysis Psychiatric Medical History: Reports: Hx Anxiety, Hx Bipolar Disorder, Hx Depression - anxiety, Hx Post Traumatic Stress Disorder Denies: Hx Schizophrenia Past Surgical History: Reports: Hx Adenoidectomy, Hx Section, Hx Myringotomy, Hx Tonsillectomy - Immunizations Immunizations up to date: Yes Hx Diphtheria, Pertussis, Tetanus Vaccination: Yes Hx Pneumococcal Vaccination: 04/08/14 Vertical Provider Document - CONSTITUTIONAL Agree With Documented VS: Yes Exam Limitations: No Limitations General Appearance: WD/WN, No Apparent Distress - INFECTION CONTROL TRAVEL OUTSIDE OF THE [place] IN LAST 30 DAYS: No - HEENT HEENT: Atraumatic, Normocephalic - NECK Neck: Normal Inspection, Supple. negative: Lymphadenopathy-Left, Lymphadenopathy-Right - RESPIRATORY Respiratory: Breath Sounds Normal, No Respiratory Distress - CARDIOVASCULAR Cardiovascular: Regular Rate, Regular Rhythm. negative: Tachycardia - GI/ABDOMEN Gastrointestinal: Abdomen Soft, Abdomen Tender - LLQ pelvic tenderness, No Organomegaly - BACK Back: Normal Inspection. negative: CVA Tenderness-Right, CVA Tenderness-Left - MUSCULOSKELETAL/EXTREMETIES Musculoskeletal/Extremeties: MARCELL SHORT - NEURO Level of Consciousness: Awake, Alert, Appropriate Motor/Sensory: No Motor Deficit - DERM Integumentary: Warm, Dry, No Rash Course - Re-evaluation Re-evalutation: 11/14/18 14:37 Patient with left ovarian cyst that coincides with patient's location of pelvic tenderness as well as incidental UTI. Patient offered pelvic examination declines at this time. Will culture urine and start patient on Keflex. Patient states she is taking this medication in the past without adverse reaction. - Vital Signs Vital signs: Temp Pulse Resp BP Pulse Ox 97.4 F 86 18 137/88 H 97 11/14/18 11:26 11/14/18 11:26 11/14/18 11:26 11/14/18 11:26 11/14/18 11:26 - Laboratory Result Diagrams: 11/14/18 12:40 11/14/18 12:40 Laboratory results interpreted by me: 11/14/18 12:40 Urine Blood LARGE H Urine Nitrite POSITIVE H Ur Leukocyte Esterase LARGE H 11/14/18 14:38 Labs- Entire Visit 11/14/18 11/14/18 11/14/18 12:40 12:40 12:40 WBC 6.9 RBC 4.66 Hgb 14.6 Hct 42.5 MCV 91 MCH 31.4 MCHC 34.4 RDW 12.9 Plt Count 223 Seg Neutrophils % 52.5 Lymphocytes % 38.1 Monocytes % 6.1 Eosinophils % 2.1 Basophils % 1.2 Absolute Neutrophils 3.6 Absolute Lymphocytes 2.6 Absolute Monocytes 0.4 Absolute Eosinophils 0.1 Absolute Basophils 0.1 Sodium 138.0 Potassium 4.7 Chloride 104 Carbon Dioxide 25 Anion Gap 9 BUN 11 Creatinine 0.72 Est GFR ( Amer) > 60 Est GFR (Non-Af Amer) > 60 Glucose 80 Calcium 9.5 Total Bilirubin 0.3 Direct Bilirubin 0.2 Neonat Total Bilirubin Not Reportable Neonat Direct Bilirubin Not Reportable Neonat Indirect Bili Not Reportable AST 26 ALT 36 Alkaline Phosphatase 72 Total Protein 7.8 Albumin 4.4 Serum HCG, Qual NEGATIVE Urine Color Urine Appearance Urine pH Ur Specific [place] Urine Protein Urine Glucose (UA) Urine Ketones Urine Blood Urine Nitrite Urine Bilirubin Urine Urobilinogen Ur Leukocyte Esterase Urine WBC (Auto) Urine RBC (Auto) Urine Bacteria (Auto) Squamous Epi Cells Auto Urine Mucus (Auto) Urine Ascorbic Acid 11/14/18 12:40 WBC RBC Hgb Hct MCV MCH MCHC RDW Plt Count Seg Neutrophils % Lymphocytes % Monocytes % Eosinophils % Basophils % Absolute Neutrophils Absolute Lymphocytes Absolute Monocytes Absolute Eosinophils Absolute Basophils Sodium Potassium Chloride Carbon Dioxide Anion Gap BUN Creatinine Est GFR ( Amer) Est GFR (Non-Af Amer) Glucose Calcium Total Bilirubin Direct Bilirubin Neonat Total Bilirubin Neonat Direct Bilirubin Neonat Indirect Bili AST ALT Alkaline Phosphatase Total Protein Albumin Serum HCG, Qual Urine Color YELLOW Urine Appearance CLOUDY Urine pH 6.0 Ur Specific [place] 1.017 Urine Protein NEGATIVE Urine Glucose (UA) NEGATIVE Urine Ketones NEGATIVE Urine Blood LARGE H Urine Nitrite POSITIVE H Urine Bilirubin NEGATIVE Urine Urobilinogen NEGATIVE Ur Leukocyte Esterase LARGE H Urine WBC (Auto) 17 Urine RBC (Auto) 12 Urine Bacteria (Auto) 3+ Squamous Epi Cells Auto 6 Urine Mucus (Auto) OCC Urine Ascorbic Acid NEGATIVE - Diagnostic Test Radiology reviewed: Reports reviewed Discharge - Discharge Clinical Impression: Nausea & vomiting Qualifiers: Vomiting type: unspecified Vomiting Intractability: non-intractable Qualified Code(s): R11.2 - Nausea with vomiting, unspecified UTI (urinary tract infection) Qualifiers: Urinary tract infection type: site unspecified Hematuria presence: with hematuria Qualified Code(s): N39.0 - Urinary tract infection, site not specified Ovarian cyst Qualifiers: Laterality: left Qualified Code(s): N83.202 - Unspecified ovarian cyst, left side Condition: Stable Disposition: HOME, SELF-CARE Instructions: Antinausea Medication ([facility]), Cephalexin ([facility]), Ovarian Cyst ([facility]), Urinary Tract Infection ([facility]), Vomiting ([facility]) Additional Instructions: Return immediately for any new or worsening symptoms Followup with your primary care provider, call tomorrow to make a followup appointment Urine culture is pending, we will call if you need any different treatment Prescriptions: Cephalexin Monohydrate [Keflex 500 mg Capsule] 500 mg PO Q6H 5 Days capsule Naproxen [Naprosyn 250 Nmg Tablet] 1 tab PO BID #14 tablet Ondansetron HCl [Zofran 4 mg Tablet] 1 - 2 tab PO Q6 PRN #15 tablet PRN Reason: Referrals: [facility] [Provider Group] - Follow up as needed
[2018-11-14 15:05] VITALS: BP 138/85
== END 2018-11-14 15:03 | disposition home or self-care (01) ==
LOC: ER 11:21
DX: N83.202 Unspecified ovarian cyst, left side (principal); N39.0 Urinary tract infection, site not specified; R31.9 Hematuria, unspecified; N93.9 Abnormal uterine and vaginal bleeding, unspecified; R10.2 Pelvic and perineal pain; R11.2 Nausea with vomiting, unspecified; E11.9 Type 2 diabetes mellitus without complications
CPT/HCPCS: 36415; 87086; 84703; 85025; 87088; 80053; 81001; 87186; 76830; 93976; J3490; S0119; 99284

== ENCOUNTER 2018-12-13 10:32 | Emergency (ER) | payer MEDICAID ==
--- NOTE | 2018-12-13 12:43 | ER Document Report ---
ED Medical Screen (RME) - General Chief Complaint: Vaginal Bleeding Stated Complaint: VAGINAL BLEEDING Time Seen by Provider: 12/13/18 12:39 Mode of Arrival: Ambulatory Information source: Patient Notes: 28-year-old female presented to ED for complaint of vaginal bleeding. She states she stood up and she was pointing blood vaginally started about 01/15/1932. States there were clots present. Last menstrual period was in the end of November. Does not know she is . States she has never had vaginal bleeding like this before. Patient states she does not know her blood type. She states she has been 5 times in the past and has 5 children. She is alert and oriented respirations regular and unlabored speaking in full sentences. She states she is very dizzy but denies nausea. States her abdomen and her back are both cramping.5/5. States she is gone through almost a whole bag of pads since she started. I have greeted and performed a rapid initial assessment of this patient. A comprehensive ED assessment and evaluation of the patient, analysis of test results and completion of medical decision making process will be conducted by an additional ED providers. TRAVEL OUTSIDE OF THE [place] IN LAST 30 DAYS: No - Related Data Allergies/Adverse Reactions: drospirenone [From FLORA 28] Allergy (Severe, Verified 11/14/18 11:24) rash ethinyl estradiol [From FLORA 28] Allergy (Severe, Verified 11/14/18 11:24) rash nitrofurantoin [From Macrobid] Allergy (Severe, Verified 11/14/18 11:24) Generalized rash nitrofurantoin macrocrystalline [From Macrobid] Allergy (Severe, Verified 11/14/18 11:24) Generalized rash penicillin V potassium [From Pen-Vee K] Allergy (Severe, Verified 11/14/18 11:24) Anaphylaxis Penicillins Allergy (Severe, Verified 11/14/18 11:24) Anaphylaxis Sulfa (Sulfonamide Antibiotics) Allergy (Severe, Verified 11/14/18 11:24) Hives amoxicillin Allergy (Verified 11/14/18 11:24) Anaphylaxis erythromycin base Allergy (Verified 11/14/18 11:24) Anaphylaxis Past Medical History - General Last Menstrual Period: end november - Social History Frequency of alcohol use: None Drug Abuse: None Neurological Medical History: Reports: Hx Migraine Endocrine Medical History: Denies: Hx Diabetes Mellitus Type 2 Renal/ Medical History: Denies: Hx Peritoneal Dialysis Psychiatric Medical History: Reports: Hx Anxiety, Hx Bipolar Disorder, Hx Depression - anxiety, Hx Post Traumatic Stress Disorder Denies: Hx Schizophrenia Past Surgical History: Reports: Hx Adenoidectomy, Hx Section, Hx Myringotomy, Hx Tonsillectomy - Immunizations Immunizations up to date: Yes Hx Diphtheria, Pertussis, Tetanus Vaccination: Yes Physical Exam - Vital signs Vitals: Temp Pulse Resp BP Pulse Ox 98.1 F 73 20 121/87 H 96 12/13/18 10:55 12/13/18 10:55 12/13/18 10:55 12/13/18 10:55 12/13/18 10:55 Course - Vital Signs Vital signs: Temp Pulse Resp BP Pulse Ox 98.1 F 73 20 121/87 H 96 12/13/18 10:55 12/13/18 10:55 12/13/18 10:55 12/13/18 10:55 12/13/18 10:55
[2018-12-13] MEDS ORDERED: NORMAL SALINE 1000 ML 1,000 ML IV ONE (12:45)
[2018-12-13] MEDS ORDERED: ACETAMINOPHEN 325 MG TABLET PO ONE (12:45)
[2018-12-13 12:53] LABS: ABSOLUTE BASOPHILS # (AUTO) 0.1 10^3/uL (0.0-0.2); ABSOLUTE EOSINOPHILS # (AUTO) 0.2 10^3/uL (0.0-0.6); ABSOLUTE MONOCYTES (AUTO) 0.5 10^3/uL (0.1-1.4); ABSOLUTE NEUT (AUTO) 4.3 10^3/uL (1.7-8.2); BASOPHILS % (AUTO) 1.4 % (0-2); EOSINOPHILS % (AUTO) 2.4 % (0-6); HEMOGLOBIN 13.8 g/dL (12.0-15.5); LYMPHOCYTES % (AUTO) 36.7 % (13-45); MEAN CORPUSCULAR HEMOGLOBIN 31.4 pg (27.0-33.4); MEAN CORPUSCULAR HGB CONC 34.5 g/dL (32.0-36.0); MEAN CORPUSCULAR VOLUME 91 fl (80-97); MONOCYTES % (AUTO) 6.1 % (3-13); PLATELET COUNT 214 10^3/uL (150-450); RED BLOOD COUNT 4.39 10^6/uL (3.72-5.28); RED CELL DISTRIBUTION WIDTH 13.6 % (11.5-14.0); SEGMENTED NEUTROPHILS % (AUTO) 53.4 % (42-78); TOTAL CELLS COUNTED % (AUTO) 100 %; WHITE BLOOD COUNT 8.1 10^3/uL (4.0-10.5)
--- NOTE | 2018-12-13 14:24 | RADIOLOGY REPORT (SQ) ---
EXAM DESCRIPTION: U/S NON-OB PELVIS TV W/O DOP COMPLETED DATE/TIME: 12/13/2018 1:48 pm REASON FOR STUDY: pain and bleeding COMPARISON: Pelvic ultrasound 11/14/2018. TECHNIQUE: Grayscale images acquired of the pelvis via transvaginal approach and recorded on PACS. A dditional selected color Doppler and spectral images recorded. LIMITATIONS: None. FINDINGS: UTERUS: The uterus measures 10.6 x 5.3 x 6.4 cm. No focal myometrial mass was seen. ENDOMETRIAL STRIPE: The endometrium measures 4.7 mm in double wall thickness, within normal limits. CERVIX: The cervix measures 2.8 cm in length. RIGHT OVARY AND DOPPLER: The right ovary measures 4.3 x 2.0 x 2.7 cm. Flow by Doppler was shown to t he right ovary. LEFT OVARY AND DOPPLER: The left ovary measures 5.2 x 2.9 x 4.4 cm. Flow by Doppler was shown to the left ovary. There is a 2.7 cm dominant follicle. FREE FLUID: None noted. IMPRESSION: No acute findings. TECHNICAL DOCUMENTATION: JOB ID: [id number] [employer]- All Rights Reserved Rev-08/23 Reading location - IP/workstation name: [email or web address]
[2018-12-13 15:04] LABS: ALBUMIN 4.3 g/dL (3.5-5.0); ALKALINE PHOSPHATASE 72 U/L (38-126); ANION GAP 10 (5-19); ASPARTATE AMINO TRANSFERASE 29 U/L (14-36); BILIRUBIN,DIRECT 0.2 mg/dL (0.0-0.4); BILIRUBIN,TOTAL 0.4 mg/dL (0.2-1.3); BLOOD UREA NITROGEN 13 mg/dL (7-20); CALCIUM 9.7 mg/dL (8.4-10.2); CARBON DIOXIDE 26 mmol/L (22-30); CHLORIDE 103 mmol/L (98-107); GLUCOSE 82 mg/dL (75-110); POTASSIUM 4.5 mmol/L (3.6-5.0)
[2018-12-13 15:20] LABS: FREE T4 (FREE THYROXINE) 0.89 ng/dL (0.78-2.19)
[2018-12-13 15:34] LABS: THYROID STIMULATING HORMONE 0.66 uIU/mL (0.47-4.68)
[2018-12-13 15:52] LABS: APPEARANCE,URINE CLEAR; BILIRUBIN,URINE NEGATIVE (NEGATIVE); COLOR,URINE YELLOW; GLUCOSE, URINE NEGATIVE (NEGATIVE); KETONES,URINE NEGATIVE (NEGATIVE); LEUKOCYTE ESTERASE,URINE NEGATIVE (NEGATIVE); NITRITE,URINE NEGATIVE (NEGATIVE); PROTEIN,URINE NEGATIVE (NEGATIVE); URINE SPECIFIC GRAVITY 1.016; UROBILINOGEN,URINE NEGATIVE mg/dL (<2.0)
[2018-12-13 16:12] LABS: BACTERIA (WET MOUNT) 3+ BACTERIA SEEN; RBCS (WET MOUNT) 4+ RBCS SEEN; T.VAGINALIS (WET MOUNT) NO TRICHOMONAS SEEN; WBCS (WET MOUNT) FEW WBCS SEEN; YEAST (WET MOUNT) NO YEAST SEEN
--- NOTE | 2018-12-13 16:23 | ER Document Report ---
HPI - HPI Patient complains to provider of: abdominal pain, vaginal bleeding Time Seen by Provider: 12/13/18 12:39 Pain Level: 5 Context: 28 Yr old female patient, with the listed pmh, here for some vaginal bleeding and abdominal pain x days. No abdominal surgeries. No history of ovarian cysts, fibroids, endometriosis, or renal stones. Normal bowel movements. No UTI symptoms. No URI symptoms. No recent antibiotics or steroids. No history of diabetes or asthma. No vaginal discharge/complaints/lesions or concerns for STDs and does not want a pelvic exam. No ripping or tearing sensation. Hasn't taken anything for her symptoms. No excessive NSAID use, Tylenol use, or EtOH. No prior history of gallbladder disease, pancreatitis, ulcers, GI bleed, GERD, IBS, Crohn's, or UC. no change in color or caliber or stool. no blood thinners. no fall or trauma. no other associated sx. - REPRODUCTIVE LMP: Beginning november Reproductive: DENIES: : - DERM Skin Color: Normal, [place] Past Medical History - General Information source: Patient Last Menstrual Period: end november - Social History Smoking Status: Never Smoker Frequency of alcohol use: None Drug Abuse: None Family History: None Patient has suicidal ideation: No Patient has homicidal ideation: No Neurological Medical History: Reports: Hx Migraine Endocrine Medical History: Denies: Hx Diabetes Mellitus Type 2 Renal/ Medical History: Denies: Hx Peritoneal Dialysis Psychiatric Medical History: Reports: Hx Anxiety, Hx Bipolar Disorder, Hx Depression - anxiety, Hx Post Traumatic Stress Disorder Denies: Hx Schizophrenia Past Surgical History: Reports: Hx Adenoidectomy, Hx Section, Hx Myringotomy, Hx Tonsillectomy - Immunizations Immunizations up to date: Yes Hx Diphtheria, Pertussis, Tetanus Vaccination: Yes Hx Pneumococcal Vaccination: 04/08/14 Vertical Provider Document - CONSTITUTIONAL Notes: >>>> PHYSICAL_EXAM: GENERAL_APPEARANCE: well_nourished, alert, cooperative, no_acute_distress, no_obvious_discomfort. Pleasant, female, smiling, speaking in full sentences, in no sign of pain or resp distress, easily sitting up VITALS: reviewed, see vital signs table. HEAD: normocephalic, atraumatic. no mckeon signs. no raccoon eyes. EYES: PERRL, EOMI, (-)scleral icterus. NOSE: no_nasal_discharge. MOUTH: (-)decreased moisture. THROAT: no_tonsilar_inflammation/hypertrophy/exudate NECK: supple, no_neck_tenderness, full rom. full strength. no meningeal signs. no sign of central cord syndrome BACK: no midline_back_tenderness. no step offs or deformities CHEST_WALL: no_chest_tenderness. LUNGS: no_wheezing, (-)accessory muscle use, good air exchange bilateral. HEART: normal_rate, normal_rhythm, ABDOMEN: normal_BS, soft, abdomen-diffuse, non-tender, (-)guarding, (- )rebound, no distension or peritoneal signs. neg murphys. neg mcburneys. no cva tenderness. neg heel strike. neg obturator. neg psoas. neg rovsign. GENITALS: no_ulcers_or_lesions on the genitals, no_lacerations on the genitals, PELVIC: (-)tender uterus, left_and_right adnexa non-tender, (-)CMT, (-)active bleeding, (-)discharge, no_tenderness no cervcicitis, normal os, pt consented to exam. exam without incident. ed nurse __ at bedside during entire exam as cell maker. RECTAL: deferred EXTREMITIES: strength 5/5 in all_extremities, good pulses in all_extremities, no_edema, no_swelling\tenderness. full rom. normal gait. good hand top cutter. brisk cap refill. SKIN: warm, dry, good_color, no_rash. no grossly visible overlying skin changes to suggest trauma NEURO: motor_intact, sensory_intact. cranial nerves 2-12 intact, cerebellar fxn intact MENTAL_STATUS: normal_affect, speech_clear, oriented_X_3, responds_appropriately to questions. - INFECTION CONTROL TRAVEL OUTSIDE OF THE [place] IN LAST 30 DAYS: No Course - Re-evaluation Re-evalutation: 12/13/18 14:41 Pt here for . advised to f/u with pcp in 1-2 days. return for any worsening symptoms. vss. well appearing. satting well on ra. neurononfocal. pt understands and agrees to plan. On reexam, pt improved with tx listed. remained stable. nontoxic. well appearing. pain controlled. tolerating po. requesting to go home. case discussed with ER Attending, , who directed and agrees with plan of care and advised no further workup indicated at this time and pt is stable for dc home with close f/u with pcp/specialist. Documentation achieved through voice recording which may lead to some occasional accidental typographical errors. Extensive efforts have been made to proof read documentation to make sure these are the least as possible. 12/13/18 16:23 Category Date Time Status Doctor's Order (ED) NOW Care 12/13/18 11:42 Active Orthostatic Vital Sign (ED) NOW Care 12/13/18 14:37 Ordered Pelvic Setup (ED) NOW Care 12/13/18 11:42 Completed Saline Lock (ED) NOW Care 12/13/18 11:42 Active U/S NON-OB PELVIS TV W/O DOP [US] Stat Exams 12/13/18 12:44 Completed ADD ON [ADD ON TESTING BLD IN LAB] [CHEM] Stat Lab 12/13/18 14:37 Ordered CBC WITH DIFF [HEME] Stat Lab 12/13/18 12:43 Completed [facility] ENDO [facility] [MO] Stat Lab 12/13/18 14:39 Uncollected CMP [COMPREHENSIVE METABOLIC PANEL] [CHEM] Stat Lab 12/13/18 14:37 Ordered HCG-QUAL, SERUM [CHEM] Stat Lab 12/13/18 12:43 Completed LIPASE [CHEM] Stat Lab 12/13/18 14:41 Ordered MAGNESIUM [CHEM] Stat Lab 12/13/18 14:37 Ordered T4 [FREE T4 (FREE THYROXINE)] [CHEM] Stat Lab 12/13/18 14:37 Ordered THYROID STIMULATING HORMONE [CHEM] Stat Lab 12/13/18 14:37 Ordered URINALYSIS [URIN] Stat Lab 12/13/18 11:42 Uncollected URINE CULTURE [MC] Stat Lab 12/13/18 16:21 Uncollected WET [place] [MO] Stat Lab 12/13/18 14:39 Uncollected Acetaminophen [Tylenol 325 mg Tablet] Med 12/13/18 12:45 Discontinued 650 mg PO NOW ONE Normal Saline 1000 ml [NaCl 0.9% 1000 ml IV Soln] 1,000 Med 12/13/18 12:45 Discontinued ml IV BOLUS - Vital Signs Vital signs: Temp Pulse Resp BP Pulse Ox 98.1 F 73 20 121/87 H 96 12/13/18 10:55 09/07/19 10:55 12/13/18 10:55 12/13/18 10:55 12/13/18 10:55 - Laboratory Result Diagrams: 12/13/18 12:43 Laboratory results interpreted by me: 12/13/18 16:23 Labs- Entire Visit 12/13/18 12/13/18 12/13/18 12:43 12:43 12:43 WBC 8.1 RBC 4.39 Hgb 13.8 Hct 40.0 MCV 91 MCH 31.4 MCHC 34.5 RDW 13.6 Plt Count 214 Lymph % (Auto) 36.7 [place] % (Auto) 6.1 Eos % (Auto) 2.4 Baso % (Auto) 1.4 Absolute Neuts (auto) 4.3 Absolute Lymphs (auto) 3.0 Absolute Monos (auto) 0.5 Absolute Eos (auto) 0.2 Absolute Basos (auto) 0.1 Seg Neutrophils % 53.4 Sodium Potassium Chloride Carbon Dioxide Anion Gap BUN Creatinine Est GFR ( Amer) Est GFR (MDRD) Non-Af Glucose Calcium Magnesium Total Bilirubin Direct Bilirubin Neonat Total Bilirubin Neonat Direct Bilirubin Neonat Indirect Bili AST ALT Alkaline Phosphatase Total Protein Albumin Lipase TSH Free T4 Serum HCG, Qual NEGATIVE Urine Color Urine Appearance Urine pH Ur Specific [place] Urine Protein Urine Glucose (UA) Urine Ketones Urine Blood Urine Nitrite Urine Bilirubin Urine Urobilinogen Ur Leukocyte Esterase Urine WBC (Auto) Urine RBC (Auto) Urine Bacteria (Auto) Squamous Epi Cells Auto Urine Mucus (Auto) Urine Ascorbic Acid Bacteria (Wet Prep) Trichomonas (Wet Prep) Vaginal WBC Vaginal RBC Vaginal Yeast Blood Type Cancelled Rhogam Indicated Cancelled 12/13/18 12/13/18 12/13/18 12:43 12:43 14:45 WBC RBC Hgb Hct MCV MCH MCHC RDW Plt Count Lymph % (Auto) [place] % (Auto) Eos % (Auto) Baso % (Auto) Absolute Neuts (auto) Absolute Lymphs (auto) Absolute Monos (auto) Absolute Eos (auto) Absolute Basos (auto) Seg Neutrophils % Sodium 138.7 Potassium 4.5 Chloride 103 Carbon Dioxide 26 Anion Gap 10 BUN 13 Creatinine 0.73 Est GFR ( Amer) > 60 Est GFR (MDRD) Non-Af > 60 Glucose 82 Calcium 9.7 Magnesium 1.9 Total Bilirubin 0.4 Direct Bilirubin 0.2 Neonat Total Bilirubin Not Reportable Neonat Direct Bilirubin Not Reportable Neonat Indirect Bili Not Reportable AST 29 ALT 46 Alkaline Phosphatase 72 Total Protein 8.0 Albumin 4.3 Lipase 102.8 TSH 0.66 Free T4 0.89 Serum HCG, Qual Urine Color YELLOW Urine Appearance CLEAR Urine pH 5.0 Ur Specific [place] 1.016 Urine Protein NEGATIVE Urine Glucose (UA) NEGATIVE Urine Ketones NEGATIVE Urine Blood LARGE H Urine Nitrite NEGATIVE Urine Bilirubin NEGATIVE Urine Urobilinogen NEGATIVE Ur Leukocyte Esterase NEGATIVE Urine WBC (Auto) 8 Urine RBC (Auto) 16 Urine Bacteria (Auto) 1+ Squamous Epi Cells Auto 1 Urine Mucus (Auto) RARE Urine Ascorbic Acid NEGATIVE Bacteria (Wet Prep) Trichomonas (Wet Prep) Vaginal WBC Vaginal RBC Vaginal Yeast Blood Type Rhogam Indicated 12/13/18 15:47 WBC RBC Hgb Hct MCV MCH MCHC RDW Plt Count Lymph % (Auto) [place] % (Auto) Eos % (Auto) Baso % (Auto) Absolute Neuts (auto) Absolute Lymphs (auto) Absolute Monos (auto) Absolute Eos (auto) Absolute Basos (auto) Seg Neutrophils % Sodium Potassium Chloride Carbon Dioxide Anion Gap BUN Creatinine Est GFR ( Amer) Est GFR (MDRD) Non-Af Glucose Calcium Magnesium Total Bilirubin Direct Bilirubin Neonat Total Bilirubin Neonat Direct Bilirubin Neonat Indirect Bili AST ALT Alkaline Phosphatase Total Protein Albumin Lipase TSH Free T4 Serum HCG, Qual Urine Color Urine Appearance Urine pH Ur Specific [place] Urine Protein Urine Glucose (UA) Urine Ketones Urine Blood Urine Nitrite Urine Bilirubin Urine Urobilinogen Ur Leukocyte Esterase Urine WBC (Auto) Urine RBC (Auto) Urine Bacteria (Auto) Squamous Epi Cells Auto Urine Mucus (Auto) Urine Ascorbic Acid Bacteria (Wet Prep) 3+ BACTERIA SEEN Trichomonas (Wet Prep) NO TRICHOMONAS SEEN Vaginal WBC FEW WBCS SEEN Vaginal RBC 4+ RBCS SEEN Vaginal Yeast NO YEAST SEEN Blood Type Rhogam Indicated - Diagnostic Test Radiology reviewed: Image reviewed, Reports reviewed Radiology results interpreted by me: 12/13/18 16:23 Transvaginal US 12/13/18 12:44 IMPRESSION: No acute findings. Discharge - Discharge Clinical Impression: Dysfunctional uterine bleeding, Bacterial vaginosis Condition: Good Disposition: HOME, SELF-CARE Instructions: Vaginosis, Bacterial ([facility]), Dysfunctional Uterine Bleeding ([facility]) Additional Instructions: Follow-up with PCP/[facility] T[facility]ER in 1 to 2 days. Return for any worsening symptoms. tylenol as needed for any pain. take the medication as prescribed. Do not drink any alcohol with the medication. we will call you with any abnormal results that require change in plan of care. Prescriptions: Metronidazole [Flagyl 500 mg Tablet] 500 mg PO BID #14 tablet Referrals: NEFTALI CASE MD [ACTIVE STAFF] - Follow up in 3-5 days
[2018-12-13 16:54] VITALS: BP 131/77
[2018-12-13 17:44] LABS: CHLAM PCR NOT DETECTED (NOT DETECT)
== END 2018-12-13 16:54 | disposition home or self-care (01) ==
LOC: ER 10:32
DX: N93.8 Other specified abnormal uterine and vaginal bleeding (principal); N76.0 Acute vaginitis; B96.89 Other specified bacterial agents as the cause of diseases classified elsewhere; R10.9 Unspecified abdominal pain
CPT/HCPCS: 99284; 96360; 36415; 87086; 84439; 87210; 83690; 83735; 84443; 84703; 85025; 87088; 80053; 81001; 87186; 87491; 87591; 76830; J3490; J7030

== ENCOUNTER 2019-02-02 10:08 | Emergency (ER) | payer MEDICAID ==
[2019-02-02] MEDS ORDERED: NORMAL SALINE 1000 ML 1,000 ML IV ONE (10:40)
[2019-02-02] MEDS ORDERED: ONDANSETRON HCL INJ/PF 4 MG/2 ML SDV IV ONE (10:40)
--- NOTE | 2019-02-02 10:43 | ER Document Report ---
ED Medical Screen (RME) - General Chief Complaint: Abdominal Pain Stated Complaint: ABDOMINAL PAIN Time Seen by Provider: 02/02/19 10:28 Notes: Patient is a 28-year-old female who presents to the emergency department with a chief complaint of abdominal pain. She has had abdominal pain for the past 2 to 3 weeks. Pain is in her generalized abdomen. For the past 2 to 3 days the patient has been vomiting. She states that anything she tries to eat or drink ends up coming right back up. Patient states that she thinks she is . Her last menstrual cycle was December 31. Denies any fever, body aches, chills, or any other symptoms. Denies dysuria, vaginal bleeding, or vaginal discharge. Exam: Soft mildly tender abdomen. Abdominal exam limited due to patient in sitting position. Tachycardic. I have greeted and performed a rapid initial assessment of this patient. A comprehensive ED assessment and evaluation of the patient, analysis of test results and completion of medical decision making process will be conducted by a n additional ED providers. TRAVEL OUTSIDE OF THE [place] IN LAST 30 DAYS: No - Related Data Allergies/Adverse Reactions: drospirenone [From FLORA 28] Allergy (Severe, Verified 11/14/18 11:24) rash ethinyl estradiol [From FLORA 28] Allergy (Severe, Verified 11/14/18 11:24) rash nitrofurantoin [From Macrobid] Allergy (Severe, Verified 11/14/18 11:24) Generalized rash nitrofurantoin macrocrystalline [From Macrobid] Allergy (Severe, Verified 11/14/18 11:24) Generalized rash penicillin V potassium [From Pen-Vee K] Allergy (Severe, Verified 11/14/18 11:24) Anaphylaxis Penicillins Allergy (Severe, Verified 11/14/18 11:24) Anaphylaxis Sulfa (Sulfonamide Antibiotics) Allergy (Severe, Verified 11/14/18 11:24) Hives amoxicillin Allergy (Verified 11/14/18 11:24) Anaphylaxis erythromycin base Allergy (Verified 11/14/18 11:24) Anaphylaxis Past Medical History Neurological Medical History: Reports: Hx Migraine Endocrine Medical History: Denies: Hx Diabetes Mellitus Type 2 Renal/ Medical History: Denies: Hx Peritoneal Dialysis Psychiatric Medical History: Reports: Hx Anxiety, Hx Bipolar Disorder, Hx Depression - anxiety, Hx Post Traumatic Stress Disorder Denies: Hx Schizophrenia Past Surgical History: Reports: Hx Adenoidectomy, Hx Section, Hx Myringotomy, Hx Tonsillectomy - Immunizations Immunizations up to date: Yes Hx Diphtheria, Pertussis, Tetanus Vaccination: Yes Physical Exam - Vital signs Vitals: Temp Pulse Resp BP Pulse Ox 98.1 F 132 H 18 127/86 H 96 02/02/19 10:11 02/02/19 10:11 02/02/19 10:11 02/02/19 10:11 02/02/19 10:11 Course - Vital Signs Vital signs: Temp Pulse Resp BP Pulse Ox 98.1 F 132 H 18 127/86 H 96 02/02/19 10:11 02/02/19 10:11 02/02/19 10:11 02/02/19 10:11 02/02/19 10:11
[2019-02-02 11:39] LABS: ABSOLUTE BASOPHILS # (AUTO) 0.1 10^3/uL (0.0-0.2); ABSOLUTE EOSINOPHILS # (AUTO) 0.2 10^3/uL (0.0-0.6); ABSOLUTE LYMPHOCYTES (AUTO) 2.6 10^3/uL (0.5-4.7); ABSOLUTE MONOCYTES (AUTO) 0.6 10^3/uL (0.1-1.4); ABSOLUTE NEUT (AUTO) 6.3 10^3/uL (1.7-8.2); BASOPHILS % (AUTO) 0.8 % (0-2); EOSINOPHILS % (AUTO) 1.6 % (0-6); HEMATOCRIT 44.8 % (36.0-47.0); HEMOGLOBIN 15.5 g/dL (12.0-15.5); LYMPHOCYTES % (AUTO) 26.9 % (13-45); MEAN CORPUSCULAR HEMOGLOBIN 31.8 pg (27.0-33.4); MEAN CORPUSCULAR HGB CONC 34.6 g/dL (32.0-36.0); MEAN CORPUSCULAR VOLUME 92 fl (80-97); MONOCYTES % (AUTO) 5.9 % (3-13); PLATELET COUNT 180 10^3/uL (150-450); RED BLOOD COUNT 4.88 10^6/uL (3.72-5.28); RED CELL DISTRIBUTION WIDTH 12.8 % (11.5-14.0); SEGMENTED NEUTROPHILS % (AUTO) 64.8 % (42-78); TOTAL CELLS COUNTED % (AUTO) 100 %; WHITE BLOOD COUNT 9.8 10^3/uL (4.0-10.5)
[2019-02-02 11:44] LABS: ALBUMIN 3.5 g/dL (3.5-5.0); ALKALINE PHOSPHATASE 53 U/L (38-126); ANION GAP 7 (5-19); ASPARTATE AMINO TRANSFERASE 26 U/L (14-36); BILIRUBIN,DIRECT 0.2 mg/dL (0.0-0.4); BILIRUBIN,TOTAL 0.6 mg/dL (0.2-1.3); BLOOD UREA NITROGEN 12 mg/dL (7-20); CALCIUM 8.8 mg/dL (8.4-10.2); CARBON DIOXIDE 25 mmol/L (22-30); CHLORIDE 106 mmol/L (98-107); GLUCOSE 107 mg/dL (75-110); POTASSIUM 3.9 mmol/L (3.6-5.0); TOTAL PROTEIN 6.3 g/dL (6.3-8.2)
[2019-02-02 13:55] LABS: APPEARANCE,URINE SLIGHTLY-CLOUDY; BILIRUBIN,URINE NEGATIVE (NEGATIVE); COLOR,URINE YELLOW; GLUCOSE, URINE NEGATIVE (NEGATIVE); KETONES,URINE NEGATIVE (NEGATIVE); PROTEIN,URINE NEGATIVE (NEGATIVE); URINE SPECIFIC GRAVITY 1.016; UROBILINOGEN,URINE NEGATIVE mg/dL (<2.0)
--- NOTE | 2019-02-02 14:41 | ER Document Report ---
ED General - General Chief Complaint: Abdominal Pain Stated Complaint: ABDOMINAL PAIN Time Seen by Provider: 02/02/19 10:28 Primary Care Provider: FEROZ YU MD [Primary Care Provider] - Follow up as needed Mode of Arrival: Ambulatory Information source: Patient TRAVEL OUTSIDE OF THE [place] IN LAST 30 DAYS: No - HPI Notes: Patient presents with diffuse abdominal pain she states this pain is been going on for approximately 2 weeks. It is intermittent and across entire abdomen. It does radiate across her entire abdomen is a crampy sensation it is mild to moderate in intensity. Nothing makes it better or worse. She states she has had some nausea and vomiting as well as decreased appetite. No vaginal discharge. No dysuria urgency or frequency. No fevers. She has had no diarrhea. She states she is concerned she may be . - Related Data Allergies/Adverse Reactions: drospirenone [From FLORA 28] Allergy (Severe, Verified 11/14/18 11:24) rash ethinyl estradiol [From FLORA 28] Allergy (Severe, Verified 11/14/18 11:24) rash nitrofurantoin [From Macrobid] Allergy (Severe, Verified 11/14/18 11:24) Generalized rash nitrofurantoin macrocrystalline [From Macrobid] Allergy (Severe, Verified 11/14/18 11:24) Generalized rash penicillin V potassium [From Pen-Vee K] Allergy (Severe, Verified 11/14/18 11:24) Anaphylaxis Penicillins Allergy (Severe, Verified 11/14/18 11:24) Anaphylaxis Sulfa (Sulfonamide Antibiotics) Allergy (Severe, Verified 11/14/18 11:24) Hives amoxicillin Allergy (Verified 11/14/18 11:24) Anaphylaxis erythromycin base Allergy (Verified 11/14/18 11:24) Anaphylaxis Past Medical History - General Information source: Patient - Social History Smoking Status: Never Smoker Chew tobacco use (# tins/day): No Frequency of alcohol use: None Drug Abuse: None Family History: None Patient has suicidal ideation: No Patient has homicidal ideation: No Neurological Medical History: Reports: Hx Migraine Endocrine Medical History: Denies: Hx Diabetes Mellitus Type 2 Renal/ Medical History: Denies: Hx Peritoneal Dialysis Psychiatric Medical History: Reports: Hx Anxiety, Hx Bipolar Disorder, Hx Depression - anxiety, Hx Post Traumatic Stress Disorder Denies: Hx Schizophrenia Past Surgical History: Reports: Hx Adenoidectomy, Hx Section, Hx Myringotomy, Hx Tonsillectomy - Immunizations Immunizations up to date: Yes Hx Diphtheria, Pertussis, Tetanus Vaccination: Yes Hx Pneumococcal Vaccination: 04/08/14 Review of Systems - Review of Systems Constitutional: denies: Chills, Fever Cardiovascular: denies: Chest pain, Palpitations Respiratory: denies: Cough, Short of breath Gastrointestinal: Abdominal pain, Vomiting -: Yes All other systems reviewed and negative Physical Exam - Vital signs Vitals: Temp Pulse Resp BP Pulse Ox 98.1 F 132 H 18 127/86 H 96 02/02/19 10:11 02/02/19 10:11 02/02/19 10:11 02/02/19 10:11 02/02/19 10:11 Interpretation: Normal, Other - Heart rate at triage was listed as 139 however for me her heart rate is 82 and regular. She states she just finished ex ercising before they took her vitals out front. And that may have contributed to the high heart rate. - General General appearance: Appears well, Alert - HEENT Head: Normocephalic, Atraumatic Eyes: Normal Pupils: PERRL - Respiratory Respiratory status: No respiratory distress Chest status: Nontender Breath sounds: Normal Chest palpation: Normal - Cardiovascular Rhythm: Regular Heart sounds: Normal auscultation Murmur: No - Abdominal Inspection: Normal Distension: No distension Bowel sounds: Normal Tenderness: Nontender Organomegaly: No organomegaly - Back Back: Normal, Nontender - Extremities General upper extremity: Normal inspection, Nontender, Normal color, Normal ROM, Normal temperature General lower extremity: Normal inspection, Nontender, Normal color, Normal ROM, Normal temperature, Normal weight bearing. No: Lashanda's sign - Neurological Neuro grossly intact: Yes Cognition: Normal Orientation: AAOx4 Ry Coma Scale Eye Opening: Spontaneous [place] Coma Scale Verbal: Oriented Ry Coma Scale Motor: Obeys Commands Greenfield Coma Scale Total: 15 Speech: Normal Motor strength normal: LUE, RUE, LLE, RLE Sensory: Normal - Psychological Associated symptoms: Normal affect, Normal mood - Skin Skin Temperature: Warm Skin Moisture: Dry Skin Color: Normal Course - Re-evaluation Re-evalutation: 02/02/19 14:53 Patient is here with diffuse abdominal pain. She is not . She has no surgical abdominal signs. She has unremarkable vital signs and laboratories. I do not feel that she warrants any further emergency department evaluation. I believe that she is safe for discharge and to follow-up as an outpatient - Vital Signs Vital signs: Temp Pulse Resp BP Pulse Ox 98.1 F 132 H 18 127/86 H 96 02/02/19 10:11 02/02/19 10:11 02/02/19 10:11 02/02/19 10:11 02/02/19 10:11 - Laboratory Result Diagrams: 02/02/19 11:19 02/02/19 11:19 Laboratory results interpreted by me: 02/02/19 13:30 Urine Nitrite (Reflex) POSITIVE H Discharge - Discharge Clinical Impression: Abdominal pain Qualifiers: Abdominal location: generalized Qualified Code(s): R10.84 - Generalized abdominal pain Condition: Stable Disposition: HOME, SELF-CARE Instructions: Abdominal Pain ([facility]) Additional Instructions: Please call your family physician as soon as possible to arrange follow-up Prescriptions: Tramadol HCl [Ultram] 50 mg PO Q6 PRN 3 Days #12 tablet PRN Reason: Referrals: FEROZ YU MD [Primary Care Provider] - Follow up as needed
[2019-02-02 15:11] VITALS: BP 121/76
== END 2019-02-02 15:12 | disposition home or self-care (01) ==
LOC: ER 10:08
DX: R10.84 Generalized abdominal pain (principal); R11.2 Nausea with vomiting, unspecified; R63.0 Anorexia; Z87.892 Personal history of anaphylaxis; Z88.1 Allergy status to other antibiotic agents; Z88.0 Allergy status to penicillin; Z88.2 Allergy status to sulfonamides; Z88.8 Allergy status to other drugs, medicaments and biological substances
CPT/HCPCS: 99284; 96361; 96374; 36415; 87086; 84702; 84703; 85025; 87088; 80053; 81001; J2405; J7030; 87186

== ENCOUNTER 2019-02-19 10:44 | Emergency (ER) | payer MEDICAID ==
[2019-02-19 11:28] VITALS: BP 135/84
[2019-02-19 11:30] LABS: ABSOLUTE BASOPHILS # (AUTO) 0.1 10^3/uL (0.0-0.2); ABSOLUTE EOSINOPHILS # (AUTO) 0.2 10^3/uL (0.0-0.6); ABSOLUTE LYMPHOCYTES (AUTO) 2.7 10^3/uL (0.5-4.7); ABSOLUTE MONOCYTES (AUTO) 0.4 10^3/uL (0.1-1.4); ABSOLUTE NEUT (AUTO) 3.3 10^3/uL (1.7-8.2); BASOPHILS % (AUTO) 1.4 % (0-2); EOSINOPHILS % (AUTO) 2.3 % (0-6); HEMATOCRIT 35.2 % (36.0-47.0); HEMOGLOBIN 12.2 g/dL (12.0-15.5); LYMPHOCYTES % (AUTO) 40.9 % (13-45); MEAN CORPUSCULAR HEMOGLOBIN 31.9 pg (27.0-33.4); MEAN CORPUSCULAR HGB CONC 34.7 g/dL (32.0-36.0); MEAN CORPUSCULAR VOLUME 92 fl (80-97); MONOCYTES % (AUTO) 5.4 % (3-13); PLATELET COUNT 260 10^3/uL (150-450); RED BLOOD COUNT 3.82 10^6/uL (3.72-5.28); RED CELL DISTRIBUTION WIDTH 12.8 % (11.5-14.0); TOTAL CELLS COUNTED % (AUTO) 100 %; WHITE BLOOD COUNT 6.6 10^3/uL (4.0-10.5)
[2019-02-19 11:44] LABS: APPEARANCE,URINE CLEAR; BILIRUBIN,URINE NEGATIVE (NEGATIVE); COLOR,URINE STRAW; GLUCOSE, URINE NEGATIVE (NEGATIVE); KETONES,URINE NEGATIVE (NEGATIVE); LEUKOCYTE ESTERASE,URINE NEGATIVE (NEGATIVE); NITRITE,URINE NEGATIVE (NEGATIVE); PROTEIN,URINE NEGATIVE (NEGATIVE); URINE SPECIFIC GRAVITY 1.004; UROBILINOGEN,URINE NEGATIVE mg/dL (<2.0)
--- NOTE | 2019-02-19 13:22 | ER Document Report ---
ED GI/ - General Chief Complaint: Vaginal Bleeding Stated Complaint: VAGINAL BLEEDING Primary Care Provider: FEROZ YU MD [Primary Care Provider] - Follow up tomorrow ROSITA NG MD [ACTIVE STAFF] - Follow up as needed Notes: 28-year-old G5, P5 female presents the emergency department with abnormal vaginal bleeding since this past Saturday. Patient states that she started her period and and had some spotting for a couple of days, it stopped, and then in the last couple of days had heavy abnormal vaginal bleeding where sh e was passing clots. She says that she is gone through 2 packages of pads just in the last 2 days. Patient states that she is having some pelvic pain, denies fevers or chills, denies nausea or vomiting, does not know if she could be . TRAVEL OUTSIDE OF THE [place] IN LAST 30 DAYS: No - Related Data Allergies/Adverse Reactions: drospirenone [From FLORA 28] Allergy (Severe, Verified 02/19/19 10:59) rash ethinyl estradiol [From FLORA 28] Allergy (Severe, Verified 02/19/19 10:59) rash nitrofurantoin [From Macrobid] Allergy (Severe, Verified 02/19/19 10:59) Generalized rash nitrofurantoin macrocrystalline [From Macrobid] Allergy (Severe, Verified 02/19/19 10:59) Generalized rash penicillin V potassium [From Pen-Vee K] Allergy (Severe, Verified 02/19/19 10:59) Anaphylaxis Penicillins Allergy (Severe, Verified 02/19/19 10:59) Anaphylaxis Sulfa (Sulfonamide Antibiotics) Allergy (Severe, Verified 02/19/19 10:59) Hives amoxicillin Allergy (Verified 02/19/19 10:59) Anaphylaxis erythromycin base Allergy (Verified 02/19/19 10:59) Anaphylaxis Past Medical History - General Last Menstrual Period: 02/13/19 - Social History Smoking Status: Never Smoker Chew tobacco use (# tins/day): No Frequency of alcohol use: None Drug Abuse: None Family History: None Patient has suicidal ideation: No Patient has homicidal ideation: No Neurological Medical History: Reports: Hx Migraine Endocrine Medical History: Denies: Hx Diabetes Mellitus Type 2 Renal/ Medical History: Denies: Hx Peritoneal Dialysis Psychiatric Medical History: Reports: Hx Anxiety, Hx Bipolar Disorder, Hx Depression - anxiety, Hx Post Traumatic Stress Disorder Denies: Hx Schizophrenia Past Surgical History: Reports: Hx Adenoidectomy, Hx Section, Hx Myringotomy, Hx Tonsillectomy - Immunizations Immunizations up to date: Yes Hx Diphtheria, Pertussis, Tetanus Vaccination: Yes Hx Pneumococcal Vaccination: 04/08/14 Review of Systems - Review of Systems Constitutional: See HPI EENT: No symptoms reported Cardiovascular: No symptoms reported Respiratory: No symptoms reported Gastrointestinal: See HPI Genitourinary: See HPI Female Genitourinary: See HPI Musculoskeletal: No symptoms reported Skin: No symptoms reported Hematologic/Lymphatic: No symptoms reported Neurological/Psychological: No symptoms reported Physical Exam - Vital signs Vitals: Temp Pulse Resp BP Pulse Ox 97.9 F 85 16 135/84 H 100 02/19/19 10:45 02/19/19 10:45 02/19/19 10:45 02/19/19 10:45 02/19/19 10:45 - Notes Notes: PHYSICAL EXAMINATION: Reviewed vital signs and charting by RN GENERAL: Alert, interacts well. No acute distress. HEAD: Normocephalic, atraumatic. EYES: Pupils equal and round. Extraocular movements intact. ENT: Oral mucosa moist, tongue midline. NECK: Full range of motion. Trachea midline. LUNGS: Clear to auscultation bilaterally, no wheezes, rales, or rhonchi. No respiratory distress. HEART: Regular rate and rhythm. No murmur ABDOMEN: soft, epigastric tenderness to palpation, no tenderness to palpation bilateral adnexal areas or suprapubic. No distention. Bowel sounds present EXTREMITIES: Moves all 4 extremities spontaneously. No edema, No cyanosis. PSYCH: Normal affect, normal mood. SKIN: Warm, dry, normal turgor. No rashes or lesions noted. Course - Re-evaluation Re-evalutation: 02/19/19 13:21 Well-appearing no acute distress, initial lab work all returned within normal limits. I did perform a pelvic exam with XIOMARA Pablo present in the room. Patient did have pain in the area at the end of the speculum intravaginal and there was a small to moderate amount of blood present with clots. Plan is to add a transvaginal ultrasound and will order a serum hCG with a wet mount. It has been sent off. 02/19/19 15:28 Patient eloped. - Vital Signs Vital signs: Temp Pulse Resp BP Pulse Ox 97.9 F 85 16 135/84 H 100 02/19/19 10:45 02/19/19 10:45 02/19/19 10:45 02/19/19 10:45 02/19/19 10:45 - Laboratory Result Diagrams: 02/19/19 11:00 Laboratory results interpreted by me: 02/19/19 02/19/19 11:00 11:20 Hct 35.2 L Urine Blood LARGE H Discharge - Discharge Clinical Impression: Abnormal vaginal bleeding Condition: Stable Disposition: ELOPED Additional Instructions: You were seen today for dysfunctional uterine bleeding. This is when you have v aginal bleeding and abdominal cramping off of your normal menstrual cycle. You need to follow-up with [facility] or your primary care physician the next 1-3 days. Return immediately if you worsening pain, you began bleeding through more than 2 pads per hour for more than 3 hours, you pass out, have persistent vomiting, develop a fever greater than 100.4F, or any other symptoms that are concerning to you. Referrals: ROSITA NG MD [ACTIVE STAFF] - Follow up as needed FEROZ YU MD [Primary Care Provider] - Follow up tomorrow
[2019-02-19 13:31] LABS: BACTERIA (WET MOUNT) 4+ BACTERIA SEEN; RBCS (WET MOUNT) 4+ RBCS SEEN; T.VAGINALIS (WET MOUNT) NO TRICHOMONAS SEEN; WBCS (WET MOUNT) FEW WBCS SEEN; YEAST (WET MOUNT) NO YEAST SEEN
[2019-02-19 15:01] LABS: CHLAM PCR NOT DETECTED (NOT DETECT)
== END 2019-02-19 15:00 | disposition left against medical advice (07) ==
LOC: ER 10:44
DX: N93.9 Abnormal uterine and vaginal bleeding, unspecified (principal); R10.2 Pelvic and perineal pain; R10.816 Epigastric abdominal tenderness; Z88.8 Allergy status to other drugs, medicaments and biological substances; Z88.1 Allergy status to other antibiotic agents; Z88.0 Allergy status to penicillin; Z88.2 Allergy status to sulfonamides
CPT/HCPCS: 36415; 81001; 81025; 84702; 85025; 87210; 87491; 87591

== ENCOUNTER 2019-04-09 12:18 | Emergency (ER) | payer MEDICAID ==
[2019-04-09] MEDS ORDERED: NORMAL SALINE 1000 ML 1,000 ML IV ONE (12:54)
[2019-04-09] MEDS ORDERED: ONDANSETRON HCL INJ/PF 4 MG/2 ML SDV IV ONE (12:54)
--- NOTE | 2019-04-09 12:55 | ER Document Report ---
ED Medical Screen (RME) - General Chief Complaint: Nausea/Vomiting/Diarrhea Stated Complaint: BODY ACHES,VOMITING,DIARRHEA Time Seen by Provider: 04/09/19 12:52 Primary Care Provider: FEROZ YU MD [Primary Care Provider] - Follow up as needed TRAVEL OUTSIDE OF THE [place] IN LAST 30 DAYS: No - HPI Notes: 04/09/19 12:55 Patient is a 28-year-old female no surgical history to her abdomen who presents complaining of epigastric and right upper quadrant abdominal pain with associated nausea/vomiting/diarrhea that began last night. Pain does not radiate. No fever. I have treated and performed a rapid initial assessment of this patient. A comprehensive ED assessment and evaluation of the patient, analysis of test results and completion of medical decision making process will be conducted by additional ED providers. PHYSICAL EXAMINATION: GENERAL: Well-appearing, well-nourished and in no acute distress. A&Ox4. Answers questions appropriately. Abdomen: Limited exam in triage, but tenderness noted to the epigastrium and right upper quadrant. - Related Data Allergies/Adverse Reactions: drospirenone [From FLORA 28] Allergy (Severe, Verified 02/19/19 10:59) rash ethinyl estradiol [From FLORA 28] Allergy (Severe, Verified 02/19/19 10:59) rash nitrofurantoin [From Macrobid] Allergy (Severe, Verified 02/19/19 10:59) Generalized rash nitrofurantoin macrocrystalline [From Macrobid] Allergy (Severe, Verified 02/19/19 10:59) Generalized rash penicillin V potassium [From Pen-Vee K] Allergy (Severe, Verified 02/19/19 10:59) Anaphylaxis Penicillins Allergy (Severe, Verified 02/19/19 10:59) Anaphylaxis Sulfa (Sulfonamide Antibiotics) Allergy (Severe, Verified 02/19/19 10:59) Hives amoxicillin Allergy (Verified 02/19/19 10:59) Anaphylaxis erythromycin base Allergy (Verified 02/19/19 10:59) Anaphylaxis Past Medical History Neurological Medical History: Reports: Hx Migraine Endocrine Medical History: Denies: Hx Diabetes Mellitus Type 2 Renal/ Medical History: Denies: Hx Peritoneal Dialysis Psychiatric Medical History: Reports: Hx Anxiety, Hx Bipolar Disorder, Hx Depression - anxiety, Hx Post Traumatic Stress Disorder Denies: Hx Schizophrenia Past Surgical History: Reports: Hx Adenoidectomy, Hx Section, Hx Myringotomy, Hx Tonsillectomy - Immunizations Immunizations up to date: Yes Hx Diphtheria, Pertussis, Tetanus Vaccination: Yes Physical Exam - Vital signs Vitals: Temp Pulse Resp BP Pulse Ox 98.1 F 96 18 114/66 98 04/09/19 12:30 04/09/19 12:30 04/09/19 12:30 04/09/19 12:30 04/09/19 12:30 Course - Vital Signs Vital signs: Temp Pulse Resp BP Pulse Ox 98.1 F 96 18 114/66 98 04/09/19 12:30 04/09/19 12:30 04/09/19 12:30 04/09/19 12:30 04/09/19 12:30 Doctor's Discharge - Discharge Referrals: FEROZ YU MD [Primary Care Provider] - Follow up as needed
[2019-04-09 13:39] LABS: ABSOLUTE BASOPHILS # (AUTO) 0.1 10^3/uL (0.0-0.2); ABSOLUTE EOSINOPHILS # (AUTO) 0.2 10^3/uL (0.0-0.6); ABSOLUTE LYMPHOCYTES (AUTO) 1.9 10^3/uL (0.5-4.7); ABSOLUTE MONOCYTES (AUTO) 0.4 10^3/uL (0.1-1.4); ABSOLUTE NEUT (AUTO) 3.6 10^3/uL (1.7-8.2); BASOPHILS % (AUTO) 0.9 % (0-2); EOSINOPHILS % (AUTO) 3.6 % (0-6); HEMATOCRIT 34.2 % (36.0-47.0); HEMOGLOBIN 11.4 g/dL (12.0-15.5); LYMPHOCYTES % (AUTO) 30.5 % (13-45); MEAN CORPUSCULAR HEMOGLOBIN 27.5 pg (27.0-33.4); MEAN CORPUSCULAR HGB CONC 33.4 g/dL (32.0-36.0); MEAN CORPUSCULAR VOLUME 83 fl (80-97); PLATELET COUNT 280 10^3/uL (150-450); RED BLOOD COUNT 4.15 10^6/uL (3.72-5.28); RED CELL DISTRIBUTION WIDTH 16.6 % (11.5-14.0); TOTAL CELLS COUNTED % (AUTO) 100 %; WHITE BLOOD COUNT 6.2 10^3/uL (4.0-10.5)
[2019-04-09 14:03] LABS: ALBUMIN 4.1 g/dL (3.5-5.0); ALKALINE PHOSPHATASE 61 U/L (38-126); ANION GAP 11 (5-19); ASPARTATE AMINO TRANSFERASE 30 U/L (14-36); BILIRUBIN,DIRECT 0.2 mg/dL (0.0-0.4); BILIRUBIN,TOTAL 0.3 mg/dL (0.2-1.3); BLOOD UREA NITROGEN 13 mg/dL (7-20); CALCIUM 9.3 mg/dL (8.4-10.2); CARBON DIOXIDE 27 mmol/L (22-30); CHLORIDE 105 mmol/L (98-107); GLUCOSE 110 mg/dL (75-110); POTASSIUM 4.1 mmol/L (3.6-5.0); TOTAL PROTEIN 7.8 g/dL (6.3-8.2)
--- NOTE | 2019-04-09 14:15 | RADIOLOGY REPORT (SQ) ---
EXAM DESCRIPTION: U/S ABDOMEN LIMITED W/O DOP COMPLETED DATE/TIME: 04/09/2019 1:59 pm REASON FOR STUDY: ruq/epigastric pain COMPARISON: None. TECHNIQUE: Dynamic and static grayscale images acquired of the abdomen and recorded on PACS. Additio nal selected color Doppler and spectral images recorded. LIMITATIONS: None. FINDINGS: PANCREAS: No masses. Visualized pancreatic duct normal caliber. LIVER: No masses. Echotexture increased consistent with fatty infiltration. LIVER VASCULATURE: Normal directional flow of the main portal vein and hepatic veins. GALLBLADDER: No stones. Normal wall thickness. No pericholecystic fluid. ULTRASOUND-DETECTED DERAS'S SIGN: Negative. INTRAHEPATIC DUCTS AND COMMON DUCT: CBD and intrahepatic ducts normal caliber. No filling defects. INFERIOR VENA CAVA: Normal flow. AORTA: No aneurysm identified. RIGHT KIDNEY: Normal size. Normal echogenicity. No solid or suspicious masses. No hydronephros is. No calcifications. PERITONEAL AND RIGHT PLEURAL SPACE: No ascites or effusions. OTHER: No other significant findings. IMPRESSION: NO ACUTE FINDINGS. Fatty infiltration of the liver. TECHNICAL DOCUMENTATION: JOB ID: [id number] [id number] [employer]- All Rights Reserved Reading location - IP/workstation name: [email or web address]
[2019-04-09 14:24] LABS: AMORPHOUS SEDIMENT,URINE TRACE /HPF; APPEARANCE,URINE SLIGHTLY-CLOUDY; BILIRUBIN,URINE NEGATIVE (NEGATIVE); COLOR,URINE YELLOW; GLUCOSE, URINE NEGATIVE (NEGATIVE); KETONES,URINE NEGATIVE (NEGATIVE); PROTEIN,URINE 100 mg/dL (NEGATIVE); UROBILINOGEN,URINE NEGATIVE mg/dL (<2.0)
--- NOTE | 2019-04-09 14:27 | ER Document Report ---
Entered by MO GIBBONS SCRIBE 04/09/19 1400 Acting as scribe for:JOSE G LEIVA MD ED GI/ - General Chief Complaint: Nausea/Vomiting/Diarrhea Stated Complaint: BODY ACHES,VOMITING,DIARRHEA Time Seen by Provider: 04/09/19 12:52 Primary Care Provider: FEROZ YU MD [Primary Care Provider] - Follow up as needed Mode of Arrival: Ambulatory Information source: Patient Notes: This 28 year old female patient presents to the ED today with complaints of RUQ and epigastric pain since 04/01/19. Patient reports associated nausea, vomiting, diarrhea, and a fever. Patient states that her symptoms have worsened since onset. Patient reports a nonproductive cough that began x2-3 days ago. Patient notes that her last menstrual period was normal and on time on 03/31/19 and that she is not currently on control. Patient states that she did receive a flu shot. Patient denies any weight loss. TRAVEL OUTSIDE OF THE [place] IN LAST 30 DAYS: No - Related Data Allergies/Adverse Reactions: drospirenone [From FLORA 28] Allergy (Severe, Verified 02/19/19 10:59) rash ethinyl estradiol [From FLORA 28] Allergy (Severe, Verified 02/19/19 10:59) rash nitrofurantoin [From Macrobid] Allergy (Severe, Verified 02/19/19 10:59) Generalized rash nitrofurantoin macrocrystalline [From Macrobid] Allergy (Severe, Verified 02/19/19 10:59) Generalized rash penicillin V potassium [From Pen-Vee K] Allergy (Severe, Verified 02/19/19 10:59) Anaphylaxis Penicillins Allergy (Severe, Verified 02/19/19 10:59) Anaphylaxis Sulfa (Sulfonamide Antibiotics) Allergy (Severe, Verified 02/19/19 10:59) Hives amoxicillin Allergy (Verified 02/19/19 10:59) Anaphylaxis erythromycin base Allergy (Verified 02/19/19 10:59) Anaphylaxis Past Medical History - General Information source: Patient - Social History Smoking Status: Never Smoker Cigarette use (# per day): No Chew tobacco use (# tins/day): No Smoking Education Provided: No Frequency of alcohol use: None Drug Abuse: None Family History: Reviewed & Not Pertinent Patient has suicidal ideation: No Patient has homicidal ideation: No Neurological Medical History: Reports: Hx Migraine Psychiatric Medical History: Reports: Hx Anxiety, Hx Bipolar Disorder, Hx Depression - anxiety, Hx Post Traumatic Stress Disorder Past Surgical History: Reports: Hx Adenoidectomy, Hx Section, Hx Myringotomy, Hx Tonsillectomy - Immunizations Immunizations up to date: Yes Hx Diphtheria, Pertussis, Tetanus Vaccination: Yes Hx Pneumococcal Vaccination: 04/08/14 Review of Systems - Review of Systems Constitutional: See HPI, Fever. denies: Weight loss EENT: No symptoms reported Cardiovascular: No symptoms reported Respiratory: See HPI, Cough Gastrointestinal: See HPI, Abdominal pain, Diarrhea, Nausea, Vomiting Genitourinary: No symptoms reported Female Genitourinary: Last menstrual period - On 03/31/19. Was normal and on time. Musculoskeletal: No symptoms reported Skin: No symptoms reported Hematologic/Lymphatic: No symptoms reported Neurological/Psychological: No symptoms reported -: Yes All other systems reviewed and negative Physical Exam - Vital signs Vitals: Temp Pulse Resp BP Pulse Ox 98.1 F 96 18 114/66 98 04/09/19 12:30 04/09/19 12:30 04/09/19 12:30 04/09/19 12:30 04/09/19 12:30 Interpretation: Normal - General General appearance: Appears well, Alert In distress: None - HEENT Head: Normocephalic, Atraumatic Eyes: Normal Pupils: PERRL - Respiratory Respiratory status: No respiratory distress Chest status: Nontender Breath sounds: Normal Chest palpation: Normal - Cardiovascular Rhythm: Regular Heart sounds: Normal auscultation Murmur: No - Abdominal Inspection: Morbidly Obese Distension: No distension Bowel sounds: Normal Tenderness: Tender - RUQ and epigastric tenderness with palpation, Other - Abdomen soft Organomegaly: No organomegaly - Back Back: Normal, Nontender - Extremities General upper extremity: Normal inspection General lower extremity: Normal inspection - Neurological Neuro grossly intact: Yes - Psychological Associated symptoms: Normal affect, Normal mood - Skin Skin Temperature: Warm Skin Moisture: Dry Skin Color: Normal Course - Vital Signs Vital signs: Temp Pulse Resp BP Pulse Ox 98.1 F 96 18 114/66 98 04/09/19 12:30 04/09/19 12:30 04/09/19 12:30 04/09/19 12:30 04/09/19 12:30 - Laboratory Result Diagrams: 04/09/19 03:05 04/09/19 03:05 Laboratory results interpreted by me: 04/09/19 04/09/19 03:05 13:00 Hgb 11.4 L Hct 34.2 L RDW 16.6 H Urine Protein 100 H Urine Blood LARGE H Urine Nitrite (Reflex) POSITIVE H Leukocyte Esterase Rfl TRACE H Discharge - Discharge Clinical Impression: Viral upper respiratory tract infection with cough, Nausea, vomiting and diarrhea Urinary tract infection Qualifiers: Urinary tract infection type: site unspecified Hematuria presence: without hematuria Qualified Code(s): N39.0 - Urinary tract infection, site not specified Abdominal pain Qualifiers: Abdominal location: right upper quadrant Qualified Code(s): R10.11 - Right upper quadrant pain Condition: Stable Disposition: HOME, SELF-CARE Additional Instructions: Upper Respiratory Illness: You have a viral infection of the respiratory passages -- a "cold." This common infection causes nasal congestion, drainage, and often sore throat and cough. It is caused by a virus and is highly contagious. The disease usually lasts a week or more, though the worst symptoms are usually over in 3 or 4 days. There is no "cure" for the viral infection -- it must run its course. If there is a complication, such as bacterial infection in the nose, sinuses, middle ear, or bronchial tubes, antibiotics may be required, but antibiotics won't affect the virus. If you smoke, you should STOP!! Drink plenty of fluids. A humidifier may help. An expectorant medication or decongestant may make you more comfortable. Use acetaminophen or ibuprofen for fever or aches. See the doctor if fever persists over two or three days, if there is any significant worsening of your symptoms, or if you simply fail to improve as expected. Gastroenteritis: You most likely have gastroenteritis. This is an irritation of the stomach and intestinal tract. It's usually caused by a virus, but can also be caused by bacteria, toxins that cause food poisoning, or excessive alcohol intake. Symptoms may include fever, painful abdominal cramps, nausea, vomiting, and diar christina. Start with small amounts (two to six ounces) of clear liquids (soft drinks, herb teas, broth, etc). Try to take fluids frequently even if you are vomiting, to prevent dehydration. When liquids are being consumed successfully, advance to small amounts of bland food (mashed potato, toast) for 6 - 12 hours. Gastroenteritis rarely requires medication. It goes away by itself. Use good handwashing so you don't spread germs. Wash underwear in very hot water. If symptoms are severe, talk to the doctor. Call your physician if blood appears in your vomitus or stool, if vomiting lasts longer than 24 hours, if the abdominal pain worsens or becomes localized to one area, or if you develop high fever. Urinary Tract Infection: Your evaluation suggests that you may have a urinary tract infection. This is due to germs growing in the bladder. This is a common problem. This infection usually responds quickly to antibiotics. Your antibiotic should be taken exactly as prescribed. Drink plenty of fluids -- three to four quarts a day. Occasionally, a bladder anesthetic will be prescribed to help stop the feeling of urgency until the antibiotic has a chance to clear the infection. This may cause your urine to be dark orange. Certain urine infections require a culture. If the doctor obtained a culture, the results will be back in two days. You should call to see if a change in treatment is needed. A repeat urinalysis after you finish treatment is often recommended. The physician will let you know if further testing is required. Call the doctor if you develop fever, chills, flank pain, inability to urinate, or blood in the urine. The gallbladder ultrasound was unremarkable. The urinalysis suggest that you may be developing urinary tract infection, which would not be unusual given the amount of nausea vomiting and diarrhea you have been having. You will be prescribed an antibiotic called Cipro. This should help with the suspected urinary tract infection, and may help stop the diarrhea you have been experiencing. You should try taking something like Pepto-Bismol if you continue to have very much diarrhea. Take the Zofran as prescribed for nauseousness if needed. Drink plenty of cool clear liquids for the next few days. Try something like Delmyriam ANDERS to help suppress your cough. Follow-up with your primary care provider if not improving. RETURN TO THE EMERGENCY ROOM IF ANY NEW OR WORSENING SYMPTOMS. Prescriptions: Ciprofloxacin HCl [Cipro 500 mg Tablet] 500 mg PO BID #10 tablet Ondansetron [Zofran Odt 4 mg Tablet] 1 - 2 tab PO Q4H #10 tab.alphonso Yu Attestation: 04/09/19 15:12 I personally performed the services described in the documentation, reviewed and edited the documentation which was dictated to the scribe in my presence, and it accurately records my words and actions. I personally performed the services described in the documentation, reviewed and edited the documentation which was dictated to the scribe in my presence, and it accurately records my words and actions.
[2019-04-09 15:37] VITALS: BP 113/73
== END 2019-04-09 15:52 | disposition home or self-care (01) ==
LOC: ER 12:18
DX: R11.2 Nausea with vomiting, unspecified (principal); R19.7 Diarrhea, unspecified; N39.0 Urinary tract infection, site not specified; J06.9 Acute upper respiratory infection, unspecified; B97.89 Other viral agents as the cause of diseases classified elsewhere; R10.11 Right upper quadrant pain; R10.13 Epigastric pain; R10.811 Right upper quadrant abdominal tenderness; R10.816 Epigastric abdominal tenderness; R05 Cough; R50.9 Fever, unspecified; Z88.8 Allergy status to other drugs, medicaments and biological substances; Z87.892 Personal history of anaphylaxis; Z88.1 Allergy status to other antibiotic agents; Z88.0 Allergy status to penicillin; Z88.2 Allergy status to sulfonamides
CPT/HCPCS: 99284; 96361; 96374; 36415; 87086; 83690; 85025; 81025; 87088; 80053; 81001; 87186; 76705; J2405; J7030

== ENCOUNTER 2019-06-15 13:00 | Emergency (ER) | payer MEDICAID ==
[2019-06-15 13:14] VITALS: BP 127/77
--- NOTE | 2019-06-15 13:35 | ER Document Report ---
HPI - HPI Time Seen by Provider: 06/15/19 13:29 Pain Level: Denies Notes: Patient is an otherwise healthy 28-year-old female presenting to emergency department chief complaint of cough that is productive with green sputum, congestion and bilateral ear pain. Patient reports pain is worse in the right ear. She also reports low back pain since slipping and falling yesterday. She has tried taking ibuprofen and Tylenol at home with minimal relief. - CONSTITUTIONAL Constitutional: DENIES: Fever, Chills - EENT EENT: REPORTS: Ear Pain. DENIES: Sore Throat, Eye problems - CARDIOVASCULAR Cardiovascular: DENIES: Chest pain - RESPIRATORY Respiratory: REPORTS: Coughing. DENIES: Trouble Breathing - REPRODUCTIVE LMP: 05/09/19 Reproductive: DENIES: : Past Medical History - General Information source: Patient - Social History Smoking Status: Never Smoker Chew tobacco use (# tins/day): No Frequency of alcohol use: None Drug Abuse: None Family History: Reviewed & Not Pertinent Patient has suicidal ideation: No Patient has homicidal ideation: No Neurological Medical History: Reports: Hx Migraine Endocrine Medical History: Denies: Hx Diabetes Mellitus Type 2 Renal/ Medical History: Denies: Hx Peritoneal Dialysis Psychiatric Medical History: Reports: Hx Anxiety, Hx Bipolar Disorder, Hx Depression - anxiety, Hx Post Traumatic Stress Disorder Denies: Hx Schizophrenia Past Surgical History: Reports: Hx Adenoidectomy, Hx Section - x2, Hx Myringotomy, Hx Tonsillectomy - adnoids - Immunizations Immunizations up to date: Yes Hx Diphtheria, Pertussis, Tetanus Vaccination: Yes Hx Pneumococcal Vaccination: 04/08/14 Vertical Provider Document - CONSTITUTIONAL Notes: PHYSICAL EXAMINATION: GENERAL: Well-appearing, well-nourished and in no acute distress. HEAD: Atraumatic, normocephalic. EYES: Pupils equal round and reactive to light, extraocular movements intact, conjunctiva are normal. ENT: Nares patent, oropharynx clear without exudates. Moist mucous membranes. Right TM bulging and erythematous. NECK: Normal range of motion, supple without lymphadenopathy LUNGS: Breath sounds clear to auscultation bilaterally and equal. No wheezes rales or rhonchi. HEART: Regular rate and rhythm without murmurs ABDOMEN: Soft, nontender, nondistended abdomen. No guarding, no rebound. No masses appreciated. Female : No CVA tenderness. Musculoskeletal: Normal range of motion, no pitting or edema. No cyanosis. Tenderness to the paraspinous muscles in the lumbar region. No vertebral tenderness, step-off or deformity. NEUROLOGICAL: Cranial nerves grossly intact. Normal speech, normal gait. Normal sensory, motor exams PSYCH: Normal mood, normal affect. SKIN: Warm, Dry, normal turgor, no rashes or lesions noted. - INFECTION CONTROL TRAVEL OUTSIDE OF THE [place] IN LAST 30 DAYS: No Course - Re-evaluation Re-evalutation: Exam consistent with otitis media. Patient will be started on appropriate antibiotics. She will continue to take Tylenol and ibuprofen for her back pain. Patient is in agreements with this plan. - Vital Signs Vital signs: Temp Pulse Resp BP Pulse Ox 98.1 F 120 H 16 127/77 H 98 06/15/19 13:13 06/15/19 13:13 06/15/19 13:13 06/15/19 13:13 06/15/19 13:13 Discharge - Discharge Clinical Impression: Otitis media Qualifiers: Otitis media type: unspecified Chronicity: acute Qualified Code(s): H66.90 - Otitis media, unspecified, unspecified ear Condition: Stable Disposition: HOME, SELF-CARE Additional Instructions: Otitis Media You have a middle ear infection (otitis media). This is usually a complication of a cold or sore throat. The middle ear cavity becomes filled with infection. Pressure and stretching of the ear drum cause pain. Antibiotics are required. A decongestant may be recommended if you have a "runny nose." You may need anesthetic drops or other pain medication. A follow-up exam may be recommended to make sure the infection has completely cleared. If the ear begins to drain, it means the ear drum has ruptured. This will usually heal spontaneously. However, it means you should keep the ear dry until re-examined by a doctor. Call the physician or return for examination at once if there is severe headache, stiff neck, confusion, increasing fever, or dizziness. You should improve significantly within two days. If you're not better, call the doctor. Prescriptions: Clindamycin HCl 300 mg PO TID #21 capsule Referrals: FEROZ YU MD [Primary Care Provider] - Follow up as needed
== END 2019-06-15 13:39 | disposition home or self-care (01) ==
LOC: ER 13:00
DX: H66.90 Otitis media, unspecified, unspecified ear (principal); R05 Cough; H92.03 Otalgia, bilateral
CPT/HCPCS: 99283

== ENCOUNTER 2019-09-16 22:25 | Emergency (ER) | payer MEDICAID ==
[2019-09-16 22:38] VITALS: BP 145/92
[2019-09-16] MEDS ORDERED: ACETAMINOPHEN 325 MG TABLET PO ONE (23:16)
[2019-09-16] MEDS ORDERED: PROMETHAZINE HCL 25 MG TABLET PO ONE (23:16)
--- NOTE | 2019-09-16 23:18 | ER Document Report ---
ED Medical Screen (RME) - General Chief Complaint: Fall Stated Complaint: FALL/BACK PAIN Time Seen by Provider: 09/16/19 23:11 Primary Care Provider: BRENDA JIMÉNEZ FNP [Primary Care Provider] - Follow up as needed Information source: Patient Notes: Patient states that she slipped on a wet floor falling back hitting her back and her head. There was no loss of consciousness. Patient complains of persistent back pain since the fall. Patient states that the back pain has made her feel nauseous and she has vomited twice. Patient is uncertain if she may be . I have greeted and performed a rapid initial assessment of this patient. A comprehensive ED assessment and evaluation of the patient, analysis of test results and completion of the medical decision making process will be conducted by additional ED providers. TRAVEL OUTSIDE OF THE [place] IN LAST 30 DAYS: No - Related Data Allergies/Adverse Reactions: drospirenone [From FLORA 28] Allergy (Severe, Verified 06/15/19 13:17) rash ethinyl estradiol [From FLORA 28] Allergy (Severe, Verified 06/15/19 13:17) rash nitrofurantoin [From Macrobid] Allergy (Severe, Verified 06/15/19 13:17) Generalized rash nitrofurantoin macrocrystalline [From Macrobid] Allergy (Severe, Verified 06/15/19 13:17) Generalized rash penicillin V potassium [From Pen-Vee K] Allergy (Severe, Verified 06/15/19 13:17) Anaphylaxis Penicillins Allergy (Severe, Verified 06/15/19 13:17) Anaphylaxis Sulfa (Sulfonamide Antibiotics) Allergy (Severe, Verified 06/15/19 13:17) Hives hydrocodone [From Vicodin] Allergy (Intermediate, Verified 06/15/19 13:17) Swelling of Throat amoxicillin Allergy (Verified 06/15/19 13:17) Anaphylaxis erythromycin base Allergy (Verified 06/15/19 13:17) Anaphylaxis medroxyprogesterone [From Depo-Provera] Adverse Reaction (Verified 06/15/19 13:17) vaginal bleeding heavy Past Medical History Neurological Medical History: Reports: Hx Migraine Endocrine Medical History: Denies: Hx Diabetes Mellitus Type 2 Renal/ Medical History: Denies: Hx Peritoneal Dialysis Psychiatric Medical History: Reports: Hx Anxiety, Hx Bipolar Disorder, Hx Depression - anxiety, Hx Post Traumatic Stress Disorder Denies: Hx Schizophrenia Past Surgical History: Reports: Hx Adenoidectomy, Hx Section - x2, Hx Myringotomy, Hx Tonsillectomy - adnoids - Immunizations Immunizations up to date: Yes Hx Diphtheria, Pertussis, Tetanus Vaccination: Yes Physical Exam - Vital signs Vitals: Temp Pulse Resp BP Pulse Ox 98.3 F 108 H 19 145/92 H 98 09/16/19 22:37 09/16/19 22:37 09/16/19 22:37 09/16/19 22:37 09/16/19 22:37 - Back Back: Vertebra tenderness - Lower lumbar tenderness, lumbar paraspinal tenderness Course - Vital Signs Vital signs: Temp Pulse Resp BP Pulse Ox 98.3 F 108 H 19 145/92 H 98 09/16/19 22:37 09/16/19 22:37 09/16/19 22:37 09/16/19 22:37 09/16/19 22:37 Doctor's Discharge - Discharge Referrals: BRENDA JIMÉNEZ FNP [Primary Care Provider] - Follow up as needed
[2019-09-16 23:49] LABS: APPEARANCE,URINE CLEAR; BILIRUBIN,URINE NEGATIVE (NEGATIVE); COLOR,URINE YELLOW; GLUCOSE, URINE NEGATIVE (NEGATIVE); KETONES,URINE NEGATIVE (NEGATIVE); LEUKOCYTE ESTERASE,URINE NEGATIVE (NEGATIVE); NITRITE,URINE POSITIVE (NEGATIVE); PROTEIN,URINE NEGATIVE (NEGATIVE); URINE SPECIFIC GRAVITY 1.009; UROBILINOGEN,URINE NEGATIVE mg/dL (<2.0)
== END 2019-09-17 00:52 | disposition left against medical advice (07) ==
LOC: ER 22:25
DX: M54.9 Dorsalgia, unspecified (principal); W01.0XXA Fall on same level from slipping, tripping and stumbling without subsequent striking against object, initial encounter; R11.2 Nausea with vomiting, unspecified; Z88.8 Allergy status to other drugs, medicaments and biological substances; Z88.1 Allergy status to other antibiotic agents; Z88.2 Allergy status to sulfonamides; Z88.6 Allergy status to analgesic agent; Z88.5 Allergy status to narcotic agent; Z87.892 Personal history of anaphylaxis; Z88.0 Allergy status to penicillin; Z53.20 Procedure and treatment not carried out because of patient's decision for unspecified reasons
CPT/HCPCS: 99281; 81025; 81001; J3490 ×2

== ENCOUNTER 2019-12-08 13:57 | Emergency (ER) | payer MEDICAID ==
[2019-12-08 15:30] VITALS: BP 136/76
--- NOTE | 2019-12-08 16:09 | ER Document Report ---
HPI - HPI Patient complains to provider of: Left Breast Lump Time Seen by Provider: 12/08/19 16:00 Pain Level: 5 Context: 29-year-old female presents to the emergency room complaining of pain and a lump to her left breast that she noticed 2 weeks ago. States she noticed some bloody discharge from her nipple yesterday. States is unable to get an appointment with her [facility]NAGER INST[facility]ATION until the end of the month. Has been taking Tylenol and ibuprofen with minimal relief. Not breast-feeding. Denies . Associated Symptoms: None Exacerbated by: Movement Relieved by: Denies Similar symptoms previously: No Recently seen / treated by doctor: No - ROS Systems Reviewed and Negative: Yes All other systems reviewed and negative - CONSTITUTIONAL Constitutional: DENIES: Fever - NEURO Neurology: DENIES: Headache - CARDIOVASCULAR Cardiovascular: DENIES: Chest pain - RESPIRATORY Respiratory: DENIES: Trouble Breathing, Coughing - GASTROINTESTINAL Gastrointestinal: DENIES: Nausea, Patient vomiting - REPRODUCTIVE LMP: 12/03/19 Reproductive: DENIES: : - MUSCULOSKELETAL Musculoskeletal: DENIES: Back Pain - DERM Skin Color: Normal Past Medical History - General Information source: Patient - Social History Smoking Status: Never Smoker Chew tobacco use (# tins/day): No Frequency of alcohol use: None Drug Abuse: None Family History: Reviewed & Not Pertinent Patient has homicidal ideation: No Neurological Medical History: Reports: Hx Migraine Endocrine Medical History: Denies: Hx Diabetes Mellitus Type 2 Renal/ Medical History: Denies: Hx Peritoneal Dialysis Psychiatric Medical History: Reports: Hx Anxiety, Hx Bipolar Disorder, Hx Depression - anxiety, Hx Post Traumatic Stress Disorder Denies: Hx Schizophrenia Past Surgical History: Reports: Hx Adenoidectomy, Hx Section - x2, Hx Myringotomy, Hx Tonsillectomy - adnoids - Immunizations Immunizations up to date: Yes Hx Diphtheria, Pertussis, Tetanus Vaccination: Yes Hx Pneumococcal Vaccination: 04/08/14 Vertical Provider Document - CONSTITUTIONAL Agree With Documented VS: Yes Exam Limitations: No Limitations General Appearance: Mild Distress - INFECTION CONTROL TRAVEL OUTSIDE OF THE [place] IN LAST 30 DAYS: No - HEENT HEENT: Atraumatic, Normocephalic - NECK Neck: Normal Inspection, Supple, Thyroid Normal. negative: Lymphadenopathy- Left, Lymphadenopathy-Right - RESPIRATORY Respiratory: Breath Sounds Normal, No Respiratory Distress, Chest Non-Tender - CARDIOVASCULAR Cardiovascular: Regular Rate, Regular Rhythm, No Murmur - REPRODUCTIVE Notes: There is no discharge or draining noted from bilateral nipples. There is a tender to centimeter palpable lump noted to the lateral aspect of the left breast. No adnexal tenderness noted bilaterally. No erythema. Not warm to touch. No signs of cellulitis. - BACK Back: Normal Inspection. negative: CVA Tenderness-Right, CVA Tenderness-Left - NEURO Level of Consciousness: Awake, Alert, Appropriate Motor/Sensory: No Motor Deficit, No Sensory Deficit - DERM Integumentary: Warm, Dry, No Rash Course - Re-evaluation Re-evalutation: 12/08/19 16:07 Discussed with patient that she would need to follow-up outpatient with an [facility] for a mammogram as well as a diagnostic ultrasound for a lump to her breast. Patient states she does have an appointment on the . Patient will be given our on-call [facility] to attempt for a sooner appointment. Did verify with her ultrasound department that they do not do ultrasounds for breast lumps in the emergency department, unless were concerned about a possible abscess or infection. Patient was counseled to warm compresses 20 minutes 3 times a day. Continue with Tylenol and or Motrin as needed for pain. Outpatient follow-up with [facility]NAGER [facility]ATION as discussed. Patient was given strict return to the emergency room guidelines. Return for any new or worsening symptoms. All questions were answered. Patient verbalized understanding and agrees with plan of care. 12/08/19 16:17 - Vital Signs Vital signs: Temp Pulse Resp BP Pulse Ox 98.2 F 102 H 18 136/76 H 100 12/08/19 15:28 12/08/19 15:28 12/08/19 15:28 12/08/19 15:28 12/08/19 15:28 Discharge - Discharge Clinical Impression: Left breast lump Condition: Stable Disposition: HOME, SELF-CARE Instructions: Breast Lumps ([facility]) Additional Instructions: Can use heat 20 minutes 3 times a day. Continue with Tylenol and or Motrin as needed for pain. Outpatient follow-up with MANAGER INSTALLATION as discussed. Return to the emergency room for any new or worsening symptoms. Referrals: BRENDA JIMÉNEZ FNP [Primary Care Provider] - Follow up as needed SUSANNA MENDEZ MD [ACTIVE PROVISIONAL STAFF] - Follow up tomorrow (Call tomorrow for an outpatient follow-up appointment.)
== END 2019-12-08 16:12 | disposition home or self-care (01) ==
LOC: ER 13:57
DX: N63.0 Unspecified lump in unspecified breast (principal); E11.9 Type 2 diabetes mellitus without complications
CPT/HCPCS: 99282

== ENCOUNTER 2020-02-23 20:23 | Observation (INO) | payer MEDICAID ==
[2020-02-23] MEDS ORDERED: IBUPROFEN 600 MG TABLET PO ONE (21:11)
--- NOTE | 2020-02-23 22:08 | RADIOLOGY REPORT (SQ) ---
US PELVIS HISTORY: Pelvic pain. Vaginal bleeding. COMPARISON: 12/13/2018 TECHNIQUE: Grayscale, color Doppler, and spectral Doppler ultrasound images of the pelvis were obtained. FINDINGS: The uterus is anteverted and measures 9.2 x 5.5 x 4.4 cm. The cervix is closed and measures 2 cm. Nabothian cysts are seen in the cervix. Endometrium is 2 cm in thickness. Both ovaries are normal in size and contain normal follicles, with the right ovary measuring 3.6 x 2.2 cm and the left ovary measuring 3.0 x 2.5 cm. Normal color Doppler blood flow is seen in both ovaries. No free fluid is evident. IMPRESSION: No acute pelvic findings.
[2020-02-23 22:21] LABS: ABSOLUTE BASOPHILS # (AUTO) 0.1 10^3/uL (0.0-0.2); ABSOLUTE EOSINOPHILS # (AUTO) 0.1 10^3/uL (0.0-0.6); ABSOLUTE LYMPHOCYTES (AUTO) 3.4 10^3/uL (0.5-4.7); ABSOLUTE MONOCYTES (AUTO) 0.7 10^3/uL (0.1-1.4); ABSOLUTE NEUT (AUTO) 5.3 10^3/uL (1.7-8.2); BASOPHILS % (AUTO) 1.2 % (0-2); EOSINOPHILS % (AUTO) 1.2 % (0-6); HEMATOCRIT 19.4 % (36.0-47.0); LYMPHOCYTES % (AUTO) 35.5 % (13-45); MEAN CORPUSCULAR HEMOGLOBIN 16.9 pg (27.0-33.4); MEAN CORPUSCULAR VOLUME 58 fl (80-97); MONOCYTES % (AUTO) 6.9 % (3-13); RED BLOOD COUNT 3.33 10^6/uL (3.72-5.28); RED CELL DISTRIBUTION WIDTH 21.4 % (11.5-14.0); SEGMENTED NEUTROPHILS % (AUTO) 55.2 % (42-78); TOTAL CELLS COUNTED % (AUTO) 100 %; WHITE BLOOD COUNT 9.6 10^3/uL (4.0-10.5)
[2020-02-23 22:34] LABS: ALBUMIN 4.3 g/dL (3.5-5.0); ALKALINE PHOSPHATASE 69 U/L (38-126); ANION GAP 10 (5-19); ASPARTATE AMINO TRANSFERASE 17 U/L (14-36); BILIRUBIN,DIRECT 0.1 mg/dL (0.0-0.4); BILIRUBIN,TOTAL 0.2 mg/dL (0.2-1.3); BLOOD UREA NITROGEN 12 mg/dL (7-20); CALCIUM 9.7 mg/dL (8.4-10.2); CARBON DIOXIDE 23 mmol/L (22-30); CHLORIDE 104 mmol/L (98-107); GLUCOSE 101 mg/dL (75-110); POTASSIUM 4.3 mmol/L (3.6-5.0); TOTAL PROTEIN 7.8 g/dL (6.3-8.2)
[2020-02-23 22:43] LABS: HEMOGLOBIN 5.6 g/dL (12.0-15.5)
[2020-02-23 22:48] LABS: ANISOCYTOSIS 2+; HYPOCHROMASIA 2+; PLATELET CLUMPS PRESENT; PLATELET COMMENT ADEQUATE; POIKILOCYTOSIS 1+; POLYCHROMASIA SLIGHT; SCHISTOCYTES SLIGHT; STOMATOCYTES SLIGHT
[2020-02-23 22:49] LABS: PLATELET COUNT 329 10^3/uL (150-450)
[2020-02-24] MEDS ORDERED: NORMAL SALINE 250 ML IV PRN ×2 (01:15)
[2020-02-24] MEDS ORDERED: TRANEXAMIC ACID INJ/PF 1,000 MG/10 ML SDV IV ONE (01:16)
--- NOTE | 2020-02-24 01:20 | ER Document Report ---
ED GI/ - General Chief Complaint: Vaginal Bleeding Stated Complaint: VAGINAL BLEEDING FOR ONE MONTH WITH PAIN Time Seen by Provider: 02/23/20 21:09 Notes: Patient is a 29-year-old female who comes emergency department for chief complaint of heavy vaginal bleeding. She states she started bleeding approximately mid January, she has bled every day since then, she states she has bloody been heavy over the past several days and started feeling lightheaded with cramping in her lower abdomen. She states tonight she is bleeding through 1 pad every 30 minutes. She states she was most recently on Nexplanon contraceptive 1 year ago. She states she has an allergy to oral contraceptives and Depo-Provera where she gets a bad rash. She is not currently on any medications. She denies nausea, vomiting, flank pain, passing out, chest pain, shortness of breath, fever. TRAVEL OUTSIDE OF THE [place] IN LAST 30 DAYS: No - Related Data Allergies/Adverse Reactions: drospirenone [From FLORA 28] Allergy (Severe, Verified 12/08/19 15:53) rash ethinyl estradiol [From FLORA 28] Allergy (Severe, Verified 12/08/19 15:53) rash nitrofurantoin [From Macrobid] Allergy (Severe, Verified 12/08/19 15:53) Generalized rash nitrofurantoin macrocrystalline [From Macrobid] Allergy (Severe, Verified 12/08/19 15:53) Generalized rash penicillin V potassium [From Pen-Vee K] Allergy (Severe, Verified 12/08/19 15:53) Anaphylaxis Penicillins Allergy (Severe, Verified 12/08/19 15:53) Anaphylaxis Sulfa (Sulfonamide Antibiotics) Allergy (Severe, Verified 12/08/19 15:53) Hives hydrocodone [From Vicodin] Allergy (Intermediate, Verified 12/08/19 15:53) Swelling of Throat amoxicillin Allergy (Verified 12/08/19 15:53) Anaphylaxis erythromycin base Allergy (Verified 12/08/19 15:53) Anaphylaxis medroxyprogesterone [From Depo-Provera] Adverse Reaction (Verified 12/08/19 15:53) vaginal bleeding heavy Past Medical History - General Information source: Patient - Social History Smoking Status: Never Smoker Frequency of alcohol use: None Drug Abuse: None Lives with: Family Family History: Reviewed & Not Pertinent Neurological Medical History: Reports: Hx Migraine Endocrine Medical History: Denies: Hx Diabetes Mellitus Type 2 Renal/ Medical History: Denies: Hx Peritoneal Dialysis Psychiatric Medical History: Reports: Hx Anxiety, Hx Bipolar Disorder, Hx Post Traumatic Stress Disorder Denies: Hx Schizophrenia Past Surgical History: Reports: Hx Adenoidectomy, Hx Section - x2, Hx Myringotomy, Hx Tonsillectomy - adnoids - Immunizations Immunizations up to date: Yes Hx Diphtheria, Pertussis, Tetanus Vaccination: Yes Hx Pneumococcal Vaccination: 04/08/14 Review of Systems - Review of Systems Constitutional: See HPI EENT: No symptoms reported Cardiovascular: See HPI Respiratory: No symptoms reported Gastrointestinal: No symptoms reported Genitourinary: No symptoms reported Female Genitourinary: See HPI Musculoskeletal: No symptoms reported Skin: No symptoms reported Hematologic/Lymphatic: No symptoms reported Neurological/Psychological: No symptoms reported Physical Exam - Vital signs Vitals: Temp Pulse Resp BP Pulse Ox 98.5 F 117 H 19 157/96 H 100 02/23/20 20:40 02/23/20 20:40 02/23/20 20:40 02/23/20 20:40 02/23/20 20:40 - Notes Notes: GENERAL: Patient is alert and cooperative. She is very pale but does not appear to be in distress HEAD: Normocephalic, atraumatic. EYES: Pupils equal, round, and reactive to light. Extraocular movements intact. ENT: Oral mucosa moist, tongue midline. Oropharynx unremarkable. Airway patent. NECK: Full range of motion. Supple. Trachea midline. No lymphadenopathy. LUNGS: Clear to auscultation bilaterally, no wheezes, rales, or rhonchi. No respiratory distress. Non-tender chest wall. HEART: Tachycardia, normal rhythm, no murmur ABDOMEN: There is tenderness over the general lower abdomen/pelvis, no guarding, mid to upper abdomen nontender. EXTREMITIES: Moves all 4 extremities spontaneously. No edema, normal radial and dorsalis pedis pulses bilaterally. No cyanosis. BACK: no cervical, thoracic, lumbar midline tenderness. No saddle anesthesia, normal distal neurovascular exam. Moves all extremities in full range of motion. NEUROLOGICAL: Alert and oriented x3. Normal speech. Cranial nerves II through XII grossly intact. Strength 5/5 in all extremities. PSYCH: Normal affect, normal mood. SKIN: Very pale Course - Re-evaluation Re-evalutation: Patient is very pale on exam, she is tachycardic. She has some generalized lower abdominal tenderness but there is no severe guarding. Ultrasound actually has been done and is not concerning. I was preparing to do a pelvic exam but patient was changed into a gown, when she got up to change into this she bled heavily in a very large amount all over the floor in her room, patient was quickly placed back into the bed and placed on the monitor. Patient will be transfused. Hemoglobin noted to be 5.6, microcytic. negative. Giving TXA as well. Patient doing better now that she is back in the bed, she is not hypotensive, she is only mildly tachycardic now. Transfusion pending. Discussed with Dr. Shah, she recommends admission to the hospital at this time, will discuss with [employer]. 02/24/20 01:[address] Morin, [employer] production quality manager. He recommends patient receive transfusion, he placed on oral contraceptive, and discharge. Unfortunately Depo-Provera will be discharged. Unfortunately patient is also allergic to Depo-Provera and she states she gets a bad rash. States at this point patient can receive the blood and follow-up. Informed them that unfortunately patient had an episode where she bled heavily all over the floor in her room, she is tachycardic currently, and she has a hemoglobin of 5.6. I explained that my supervising physician is not comfortable with this patient being discharged. He recommends that patient receive the transfusion and we will go from there. Updated Dr. Shah. 02/24/20 03:35 There has been a delay in giving patient blood transfusion because of her partic ular blood antigens per registered pharmacy technician. However the blood is ready and we will begin transfusing. I did do a pelvic exam, patient has received TXA, she is currently bleeding on pelvic exam, no concerning lesions or concerning findings otherwise. 02/24/[address] Shah again, she evaluated the patient at bedside, she called Dr. Morin, patient accepted to [employer] service. Patient states understanding and agreement. - Vital Signs Vital signs: Temp Pulse Resp BP Pulse Ox 98 F 87 17 125/78 100 02/24/20 04:11 02/24/20 04:11 02/24/20 04:11 02/24/20 04:11 02/24/20 04:11 - Laboratory Result Diagrams: 02/23/20 21:46 02/23/20 21:46 Laboratory results interpreted by me: 02/23/20 02/23/20 21:46 21:46 RBC 3.33 L Hgb 5.6 L Hct 19.4 L MCV 58 L MCH 16.9 L MCHC 29.0 L RDW 21.4 H Crossmatch See Detail Discharge - Discharge Clinical Impression: Vaginal bleeding, Anemia requiring transfusions, Tachycardia Condition: Stable Disposition: ADMITTED INPATIENT Admitting Provider: [facility] Unit Admitted: Post
[2020-02-24 01:32] LABS: INTERNATIONAL RATION (INR) 1.14; PARTIAL THROMBOPLASTIN TIME 26.5 SEC (23.5-35.8); PROTHROMBIN TIME 14.8 SEC (11.4-15.4)
[2020-02-24] MEDS ORDERED: FENTANYL CITRATE INJ/PF 100 MCG/2 ML AMPUL IV ONE (01:44)
[2020-02-24] MEDS ORDERED: ONDANSETRON HCL INJ/PF 4 MG/2 ML SDV IV ONE (01:44)
--- NOTE | 2020-02-24 03:49 | ER Document Report ---
Doctor's Note Notes: 02/24/20 03:46 I was asked to see the patient by the JOHANNA. Patient is a 29-year-old female who has been having vaginal bleeding for about 1 month. She states it is worsening. Patient states that she is having exertional dyspnea and is very fatigued. She also states she is pale. She mentions lightheadedness as well. On exam, patient is alert and oriented. Appears fatigued. Skin color is pale. She is sitting up in bed. She is breathing easy on room air. I discussed with MACHINIST, Dr. Morin, as patient becomes tachycardic with any movement. She also has had significant blood loss while in the ED and continues to have blood pooling in the vaginal vault after TXA on pelvic exam. She has been ordered 3 units of blood. He recommended that I start her on IV Premarin 25 mg every 6 hours. However, patient states she is allergic to estrogen. I will hold off on this until he can evaluate her.
[2020-02-24 04:50] LABS: APPEARANCE,URINE CLOUDY; BILIRUBIN,URINE NEGATIVE (NEGATIVE); COLOR,URINE YELLOW; GLUCOSE, URINE NEGATIVE (NEGATIVE); KETONES,URINE NEGATIVE (NEGATIVE); LEUKOCYTE ESTERASE,URINE NEGATIVE (NEGATIVE); NITRITE,URINE POSITIVE (NEGATIVE); PROTEIN,URINE 100 mg/dL (NEGATIVE); URINE SPECIFIC GRAVITY 1.028; UROBILINOGEN,URINE NEGATIVE mg/dL (<2.0)
[2020-02-24] MEDS: IBUPROFEN 800 MG TABLET PO SCH ×2 (06:42→13:54)
--- NOTE | 2020-02-24 06:56 | PDOC H&P ---
History of Present Illness Admission Date/PCP: 02/24/20 03:52 LELE SOTO Patient complains of: vaginal bleeding History of Present Illness: CANDI QEUVEDO is a 29 year old female who was having regular menstrual cycles until about month go when she started to bleed and has continues to bleed. She denies any other problems. Past Medical History Cardiac Medical History: Denies: Congestive Heart Failure, Myocardial Infarction, Hypertension Pulmonary Medical History: Denies: Pneumonia, Tuberculosis Neurological Medical History: Reports: Migraine Denies: Seizures Endocrine Medical History: Denies: Diabetes Mellitus Type 2 Renal/ Medical History: Denies: End Stage Renal Disease GI Medical History: Denies: Cirrhosis Psychiatric Medical History: Reports: Bipolar Disorder, Depression, Post Traumatic Stress Disorder Past Surgical History Past Surgical History: Reports: Adenoidectomy, Section - x2, Tonsillectomy - adnoids Social History Lives with: Family Smoking Status: Never Smoker Drugs: None - Advance Directive Resuscitation Status: Full Code Family History Family History: Reviewed & Not Pertinent Parental Family History Reviewed: Yes Children Family History Reviewed: Yes Sibling(s) Family History Reviewed.: Yes Medication/Allergy Home Medications: No Home Medications 12/08/19 Allergies/Adverse Reactions: drospirenone [From FLORA 28] Allergy (Severe, Verified 12/08/19 15:53) rash ethinyl estradiol [From FLORA 28] Allergy (Severe, Verified 12/08/19 15:53) rash nitrofurantoin [From Macrobid] Allergy (Severe, Verified 12/08/19 15:53) Generalized rash nitrofurantoin macrocrystalline [From Macrobid] Allergy (Severe, Verified 12/08/19 15:53) Generalized rash penicillin V potassium [From Pen-Vee K] Allergy (Severe, Verified 12/08/19 15:53) Anaphylaxis Penicillins Allergy (Severe, Verified 12/08/19 15:53) Anaphylaxis Sulfa (Sulfonamide Antibiotics) Allergy (Severe, Verified 12/08/19 15:53) Hives hydrocodone [From Vicodin] Allergy (Intermediate, Verified 12/08/19 15:53) Swelling of Throat amoxicillin Allergy (Verified 12/08/19 15:53) Anaphylaxis erythromycin base Allergy (Verified 12/08/19 15:53) Anaphylaxis medroxyprogesterone [From Depo-Provera] Adverse Reaction (Verified 12/08/19 15:53) vaginal bleeding heavy Physical Exam - Physical Exam Vital Signs: Temp Pulse Resp BP Pulse Ox 97.8 F 78 18 126/64 H 100 02/24/20 06:11 02/24/20 06:11 02/24/20 06:11 02/24/20 06:11 02/24/20 06:11 Intake & Output 02/22/20 02/23/20 02/24/20 06:59 06:59 06:59 Intake Total 0 Balance 0 Weight 114 kg General appearance: PRESENT: no acute distress Respiratory exam: PRESENT: clear to auscultation paulina Cardiovascular exam: PRESENT: RRR Result Laboratory Results: 02/23/20 21:46 02/23/20 21:46 02/23/20 02/23/20 02/23/20 21:46 21:46 21:46 WBC 9.6 RBC 3.33 L Hgb 5.6 L Hct 19.4 L MCV 58 L MCH 16.9 L MCHC 29.0 L RDW 21.4 H Plt Count 329 Seg Neutrophils % 55.2 Sodium 137.4 Potassium 4.3 Chloride 104 Carbon Dioxide 23 Anion Gap 10 BUN 12 Creatinine 0.78 Est GFR ( Amer) > 60 Glucose 101 Calcium 9.7 Total Bilirubin 0.2 AST 17 Alkaline Phosphatase 69 Total Protein 7.8 Albumin 4.3 Serum HCG, Qual NEGATIVE Urine Color Urine Appearance Urine pH Ur Specific [place] Urine Protein Urine Glucose (UA) Urine Ketones Urine Blood Urine Nitrite Ur Leukocyte Esterase Urine WBC (Auto) Urine RBC (Auto) Blood Type Antibody Screen 02/23/20 02/24/20 21:46 03:59 WBC RBC Hgb Hct MCV MCH MCHC RDW Plt Count Seg Neutrophils % Sodium Potassium Chloride Carbon Dioxide Anion Gap BUN Creatinine Est GFR ( Amer) Glucose Calcium Total Bilirubin AST Alkaline Phosphatase Total Protein Albumin Serum HCG, Qual Urine Color YELLOW Urine Appearance CLOUDY Urine pH 5.0 Ur Specific [place] 1.028 Urine Protein 100 H Urine Glucose (UA) NEGATIVE Urine Ketones NEGATIVE Urine Blood LARGE H Urine Nitrite POSITIVE H Ur Leukocyte Esterase NEGATIVE Urine WBC (Auto) 8 Urine RBC (Auto) >182 Blood Type A POSITIVE Antibody Screen POSITIVE Impressions: Transvaginal US 02/23/20 21:10 IMPRESSION: No acute pelvic findings. Assessment & Plan - Time Time Spent: 30 to 50 Minutes Critical Time spent with patient: Less than 15 minutes Medications reviewed and adjusted accordingly: Yes Anticipated Discharge Disposition: Home, Self Care Anticipated Discharge Timeframe: within 24 hours - Plan Summary Plan Summary: transfusion and premarin IV
[2020-02-24] MEDS ORDERED: ESTROGENS,CONJUGATED 25 MG VIAL IV SCH ×2 (07:00→09:00)
--- NOTE | 2020-02-24 09:27 | PDOC DISCHARGE SUMMARY ---
Impression - Admit/DC Date/PCP Admission Date/Primary Care Provider: 02/24/20 03:52 LELE SOTO Discharge Date: 02/24/20 - Discharge Diagnosis (1) Vaginal bleeding Is this a current diagnosis for this admission?: Yes - Assessment Summary: The patient was admitted and was given 2 units of blood. Her bleeding is minimal now. We will check a post transfusion cbc and then let her go home. We have discussed treatment options including: OCP, IUD, endometrial ablation and hysterectomy. She will start a daily iron and also a minipill at home. - Additional Information Resuscitation Status: Full Code Discharge Diet: Regular Discharge Activity: Activity As Tolerated Referrals: BRENDA JIMÉNEZ FNP [NO LOCAL MD] - Follow up as needed Prescriptions: Norethindrone [Chanelle-Be] 0.35 mg PO DAILY 30 Days #30 tablet Home Medications: Norethindrone [Chanelle-Be] 0.35 mg PO DAILY 30 Days #30 tablet 02/24/20 History of Present Illiness History of Present Illness: CANDI QUEVEDO is a 29 year old female Physical Exam - Physical Exam Vital Signs: Temp Pulse Resp BP Pulse Ox 97.5 F 79 18 119/69 98 02/24/20 08:00 02/24/20 08:00 02/24/20 08:00 02/24/20 08:00 02/24/20 08:00 Intake & Output 02/23/20 02/24/20 02/25/20 06:59 06:59 06:59 Intake Total 0 360 Balance 0 360 Weight 114 kg Results Laboratory Results: WBC 9.6 10^3/uL (4.0-10.5) 02/23/20 21:46 RBC 3.33 10^6/uL (3.72-5.28) L 02/23/20 21:46 Hgb 5.6 g/dL (12.0-15.5) L 02/23/20 21:46 Hct 19.4 % (36.0-47.0) L 02/23/20 21:46 MCV 58 fl (80-97) L 02/23/20 21:46 MCH 16.9 pg (27.0-33.4) L 02/23/20 21:46 MCHC 29.0 g/dL (32.0-36.0) L 02/23/20 21:46 RDW 21.4 % (11.5-14.0) H 02/23/20 21:46 Plt Count 329 10^3/uL (150-450) 02/23/20 21:46 Lymph % (Auto) 35.5 % (13-45) 02/23/20 21:46 [place] % (Auto) 6.9 % (3-13) 02/23/20 21:46 Eos % (Auto) 1.2 % (0-6) 02/23/20 21:46 Baso % (Auto) 1.2 % (0-2) 02/23/20 21:46 Absolute Neuts (auto) 5.3 10^3/uL (1.7-8.2) 02/23/20 21:46 Absolute Lymphs (auto) 3.4 10^3/uL (0.5-4.7) 02/23/20 21:46 Absolute Monos (auto) 0.7 10^3/uL (0.1-1.4) 02/23/20 21:46 Absolute Eos (auto) 0.1 10^3/uL (0.0-0.6) 02/23/20 21:46 Absolute Basos (auto) 0.1 10^3/uL (0.0-0.2) 02/23/20 21:46 Seg Neutrophils % 55.2 % (42-78) 02/23/20 21:46 Clumped Platelets PRESENT 02/23/20 21:46 Platelet Comment ADEQUATE 02/23/20 21:46 Polychromasia SLIGHT 02/23/20 21:46 Hypochromasia 2+ 02/23/20 21:46 Poikilocytosis 1+ 02/23/20 21:46 Anisocytosis 2+ 02/23/20 21:46 Microcytosis 3+ 02/23/20 21:46 Stomatocytes SLIGHT 02/23/20 21:46 Schistocytes SLIGHT 02/23/20 21:46 PT 14.8 SEC (11.4-15.4) 02/23/20 21:46 INR 1.14 02/23/20 21:46 APTT 26.5 SEC (23.5-35.8) 02/23/20 21:46 Sodium 137.4 mmol/L (137-145) 02/23/20 21:46 Potassium 4.3 mmol/L (3.6-5.0) 02/23/20 21:46 Chloride 104 mmol/L (98-107) 02/23/20 21:46 Carbon Dioxide 23 mmol/L (22-30) 02/23/20 21:46 Anion Gap 10 (5-19) 02/23/20 21:46 BUN 12 mg/dL (7-20) 02/23/20 21:46 Creatinine 0.78 mg/dL (0.52-1.25) 02/23/20 21:46 Est GFR ( Amer) > 60 (>60) 02/23/20 21:46 Est GFR (MDRD) Non-Af > 60 (>60) 02/23/20 21:46 Glucose 101 mg/dL (75-110) 02/23/20 21:46 Calcium 9.7 mg/dL (8.4-10.2) 02/23/20 21:46 Total Bilirubin 0.2 mg/dL (0.2-1.3) 02/23/20 21:46 Direct Bilirubin 0.1 mg/dL (0.0-0.4) 02/23/20 21:46 Neonat Total Bilirubin Not Reportable 02/23/20 21:46 Neonat Direct Bilirubin Not Reportable 02/23/20 21:46 Neonat Indirect Bili Not Reportable 02/23/20 21:46 AST 17 U/L (14-36) 02/23/20 21:46 ALT 16 U/L (<35) 02/23/20 21:46 Alkaline Phosphatase 69 U/L (38-126) 02/23/20 21:46 Total Protein 7.8 g/dL (6.3-8.2) 02/23/20 21:46 Albumin 4.3 g/dL (3.5-5.0) 02/23/20 21:46 Serum HCG, Qual NEGATIVE (NEGATIVE) 02/23/20 21:46 Urine Color YELLOW 02/24/20 03:59 Urine Appearance CLOUDY 02/24/20 03:59 Urine pH 5.0 (5.0-9.0) 02/24/20 03:59 Ur Specific [place] 1.028 02/24/20 03:59 Urine Protein 100 mg/dL (NEGATIVE) H 02/24/20 03:59 Urine Glucose (UA) NEGATIVE mg/dL (NEGATIVE) 02/24/20 03:59 Urine Ketones NEGATIVE mg/dL (NEGATIVE) 02/24/20 03:59 Urine Blood LARGE (NEGATIVE) H 02/24/20 03:59 Urine Nitrite POSITIVE (NEGATIVE) H 02/24/20 03:59 Urine Bilirubin NEGATIVE (NEGATIVE) 02/24/20 03:59 Urine Urobilinogen NEGATIVE mg/dL (<2.0) 02/24/20 03:59 Ur Leukocyte Esterase NEGATIVE (NEGATIVE) 02/24/20 03:59 Urine WBC (Auto) 8 /HPF 02/24/20 03:59 Urine RBC (Auto) >182 /HPF 02/24/20 03:59 Urine Bacteria (Auto) 3+ /HPF 02/24/20 03:59 Squamous Epi Cells Auto 3 /HPF 02/24/20 03:59 Urine Mucus (Auto) MOD /LPF 02/24/20 03:59 Urine Ascorbic Acid NEGATIVE (NEGATIVE) 02/24/20 03:59 Blood Type A2sub POSITIVE 02/23/20 21:46 Antibody Screen POSITIVE 02/23/20 21:46 Antibody Identification Anti-Nanci 02/23/20 21:46 Antigen Identification A1 Antigen - NEGATIVE Nanci Antigen - NEGATIVE 02/23/20 21:46 Antigen Identification A1 Antigen - NEGATIVE Nanci Antigen - NEGATIVE 02/23/20 21:46 Crossmatch See Detail 02/23/20 21:46 Impressions: Transvaginal US 02/23/20 21:10 IMPRESSION: No acute pelvic findings. Stroke Is this a Stroke Patient?: No Acute Heart Failure Is this a Heart Failure Patient?: No
[2020-02-24 13:53] LABS: PATH REVIEW PATHOLOGIST REVIEWED
[2020-02-24 15:25] VITALS: BP 124/74
[2020-02-24 15:47] LABS: HEMATOCRIT 24.7 % (36.0-47.0); MEAN CORPUSCULAR HEMOGLOBIN 21.6 pg (27.0-33.4); MEAN CORPUSCULAR HGB CONC 31.4 g/dL (32.0-36.0); PLATELET COUNT 274 10^3/uL (150-450); RED CELL DISTRIBUTION WIDTH 27.9 % (11.5-14.0)
[2020-02-24 16:18] LABS: HEMOGLOBIN 7.8 g/dL (12.0-15.5); MEAN CORPUSCULAR VOLUME 69 fl (80-97)
== END 2020-02-24 16:55 | disposition home or self-care (01) ==
LOC: ER 20:23 → INTOOBSV 02-24 03:52 → EH 02-24 03:52 → 2N 02-24 04:52
PROVIDERS: ADMIT Obstetrics & Gynecology Gynecology; ATTEND Obstetrics & Gynecology Gynecology
DX: N93.9 Abnormal uterine and vaginal bleeding, unspecified (principal); D64.9 Anemia, unspecified; R53.83 Other fatigue; R06.09 Other forms of dyspnea; R42 Dizziness and giddiness; Z88.0 Allergy status to penicillin; Z88.2 Allergy status to sulfonamides; Z88.8 Allergy status to other drugs, medicaments and biological substances
CPT/HCPCS: 99285; 96374; 96375; 86900; 86901; 36415 ×2; 36430; 86870; 86850; 86922; 84703; 85025; 85027; 85610; 85730; 80053; 81001; 86920; 86902 ×2; 76830; G0378; P9016; J3490 ×2; J3010; J2405